=== PATIENT | male | born 1950 | race Caucasian/White ===

== ENCOUNTER → 2017-05-16 | Day surgery (SDC) | payer OTHER, BC ==
[2017-05-10 07:51] VITALS: Ht 180.3 cm; Wt 90.0 kg
[~2017-05-16] VITALS: Ht 180.3 cm; Wt 90.0 kg
[~2017-05-16] MED LIST: ATOR-24 PO; CARV6.252 PO; CLOP1TAB5 PO; GLIM4TAB2 PO; LIDOCAINE HCL 2% 2 ML VIAL (20MG/ML) ONE; LSN/2025 PO; MELO15TA10 PO; METF1000 PO; PROPOFOL IV EMULSION 10 MG/ML 20 ML VIAL IV ONE; SODIUM CHLORIDE 0.9% 500ML 500 ML IV ONE
--- NOTE | 2017-05-16 10:19 | Endo History and Physical ---
History & Physical Date of Service: May 16, 2017. Chief Complaint: History of colon cancer Referring Physician: Dr. Geovani Agrawal History of Present Illness h/o CRC Past Surgical History Hx Cardiac Surgery: No Hx Internal Defibrillator: No Hx Pacemaker: No Hx Abdominal Surgery: Yes (INCISIONAL HERNIA) Hx of Implantable Prosthesis: No Hx Post-Op Nausea and Vomiting: No Hx Cancer Surgery: Yes (COLON POLYPS REMOVED) Hx Thoracic Surgery: No Hx Orthopedic: Yes (LUMBAR DISCECTOMY) Hx Urinary Tract Surgery: No Family History None Social History Smoking Status: Never Smoker Hx Substance Use: No Hx Alcohol Use: No Allergies Coded Allergies: No Known Allergies (Verified , 05/10/17) Current Medications Reported Home Medications Medications Dose Route/Sig Max Daily Dose Days Date Category Glucophage (Metformin Hcl) 1,000 Mg Tab 1,000 Mg PO BID 05/10/17 Reported Lipitor (Atorvastatin Calcium) 40 Mg Tab 40 Mg PO QPM 05/10/17 Reported Plavix (Clopidogrel Bisulfate) 75 Mg Tab 75 Mg PO QAM 05/10/17 Reported Coreg (Carvedilol) 6.25 Mg Tab 6.25 Mg PO BID 05/10/17 Reported Lisinopril/Hctz 20/25 Mg (HCTZ/Lisinopril) 1 Ea Tab 1 Tab PO QAM 05/10/17 Reported Glimepiride 4 Mg Tab 1 Tab PO QAM 05/10/17 Reported Mobic (Meloxicam) 15 Mg Tab 15 Mg PO QAM 05/10/17 Reported Vital Signs Weight (Kilograms): 90 Height (Feet): 5 Height (Inches): 11 Date Time Temp Pulse Resp B/P (MAP) Pulse Ox O2 Delivery O2 Flow Rate FiO2 05/16/17 10:07 37 69 16 140/85 (103) 98 Room Air Physical Exam General Appearance: no apparent distress Respiratory/Chest: Auscultation: breath sounds normal Cardiovascular: Heart Auscultation: RRR Abdomen: Inspection & Palpation: soft Assessment and Plan H/o CRC - cscopy
--- NOTE | 2017-05-16 10:50 | GI REPORT ---
Procedure Date: 05/16/2017 9:52 AM Procedure: Colonoscopy Indications: High risk colon cancer surveillance: Personal history of colon cancer Medicines: See the Anesthesia note for documentation of the administered medications Complications: No immediate complications. Estimated Blood Loss: Estimated blood loss: none. Procedure: Pre-Anesthesia Assessment: - ASA Grade Assessment: III - A patient with severe systemic disease. After I obtained informed consent, the scope was passed under direct vision. Throughout the procedure, the patient's blood pressure, pulse, and oxygen saturations were monitored continuously. The scope was introduced through the anus and advanced to the terminal ileum. The colonoscopy was performed without difficulty. The patient tolerated the procedure well. The quality of the bowel preparation was good. Findings: The perianal and digital rectal examinations were normal. Unremarkable end to side anastamosis at 18 cm. The colon was otherwise normal. Impression: Unremarkable post surgical anatomy. Recommendation: - Repeat exam in 5 years. - Discharge patient to home. Anthony Pak MD 05/16/2017 10:50:15 AM This report has been signed electronically. Note Initiated On: 05/16/2017 9:52 AM I attest to the content of the Intraoperative Record and orders documented therein, exceptions below
--- NOTE | 2017-05-16 10:51 | Discharge Instructions ---
Endoscopy Patient Instructions Date / Procedure(s) Performed May 16, 2017. Colonoscopy Allergy Information Coded Allergies: No Known Allergies (Verified , 05/10/17) Discharge Date / Findings May 16, 2017. Unremarkable post surgical exam Medication Instructions Stopped Medication(s): Plavix, metformin and lisinopril with hctz was stopped. Resume all stopped medications today. Provider Instructions Activity Restrictions - No exercising or heavy lifting for 24 hours. - Do not drink alcohol the day of the procedure. - Do not drive a car or operate machinery until the day after the procedure. - Do not make any important decisions or sign important papers in 24 hours after the procedure. Following Day: - Return to full activity which may include returning to work/school. Diet Start your diet with liquids and light foods (jello, soup, juice, toast). Then eat your usual diet if not nauseated. Treatment For Common After Affects For mild abdominal pain, bloating, or excessive gas: - Rest - Eat lightly - Lie on right side Follow-Up Information Follow-up with Dr. Geovani Agrawal as scheduled Anesthesia Information What You Should Know You have had a procedure that required some medicine to reduce anxiety and discomfort. This treatment is called moderate sedation. After receiving the treatment, you may be sleepy, but you will be able to breathe on your own. The effects of the treatment may last for several hours. Follow these instructions along with Activity/Diet recommendations noted above: * Do NOT do anything where dizziness or clumsiness would be dangerous. * Rest quietly at home today, then you can be up and about tomorrow. * Have a responsible person stay with you the rest of today. * You may have had an I.V. today. If so, you may take the dressing off later today. Recommendations Call your doctor if: * Trouble breathing * Continuous vomiting for more than 24 hours * Temperature above 101 degrees * Severe abdominal pain or bloating * Pain not relieved by pain medicine ordered * There is increased drainage or redness from any incision * A large amount of rectal bleeding greater than 2-3 tablespoons. (If you had a polyp/s removed or have hemorrhoids, a small amount of blood - from the rectum is to be expected.) * You have any unanswered questions or concerns. IN THE EVENT OF A SERIOUS EMERGENCY, GO TO THE NEAREST EMERGENCY ROOM Your discharge instructions were prepared by provider Arden Travis. Patient Instructions Signature Page Floydcharles Isreal Patient (or Guardian) Signature/Date: I have read and understand the instructions given to me by my caregivers. Caregiver/RN/Doctor Signature/Date: The above-named patient and/or guardian has received patient instructions on this date. + Original Patient Signature Page (only) stays with chart. Please make copy for patient.
--- NOTE | 2017-05-16 11:13 | Anesthesiology Progress Note ---
Anesthesia Post Op Note Date & Time May 16, 2017 at 11:13 Vital Signs Pain Intensity: 0 Vital Signs Past 12 Hours Date Time Temp Pulse Resp B/P (MAP) Pulse Ox O2 Delivery O2 Flow Rate FiO2 05/16/17 11:06 81 16 144/87 (106) 98 Room Air 05/16/17 10:51 72 16 105/69 (81) 97 Room Air 05/16/17 10:07 37 69 16 140/85 (103) 98 Room Air Notes Mental Status: alert / awake / arousable, participated in evaluation Pt Amnestic to Procedure: Yes Nausea / Vomiting: adequately controlled Pain: adequately controlled Airway Patency, RR, SpO2: stable & adequate BP & HR: stable & adequate Hydration State: stable & adequate Anesthetic Complications: no major complications apparent
[2017-05-16 11:21] VITALS: BP 141/88; PULSE 75; O2SAT 97
== END | disposition home or self-care (01) ==
LOC: C.GI 09:34
PROVIDERS: ATTEND Internal Medicine Gastroenterology
DX: Z12.11 Encounter for screening for malignant neoplasm of colon (principal); Z85.038 Personal history of other malignant neoplasm of large intestine; I10 Essential (primary) hypertension; E78.5 Hyperlipidemia, unspecified; E11.9 Type 2 diabetes mellitus without complications; M19.90 Unspecified osteoarthritis, unspecified site; Z86.73 Personal history of transient ischemic attack (TIA), and cerebral infarction without residual deficits; Z79.02 Long term (current) use of antithrombotics/antiplatelets; Z79.899 Other long term (current) drug therapy; Z79.84 Long term (current) use of oral hypoglycemic drugs

== ENCOUNTER 2018-04-27 08:06 | Inpatient (IN) ==
--- NOTE | 2018-04-21 10:03 | PAT Medication Instructions ---
Medication Instructions Date of Service April 21, 2018 Home Medications Acetaminophen 1 dose PO NEEDED ascorbic acid (vitamin C) 500 mg PO DAILY atorvastatin 40 mg PO HS carvedilol 6.25 mg PO BID clopidogrel 75 mg PO DAILY glimepiride 2 tab PO QAM lisinopril-hydrochlorothiazide 1 tab PO QAM metformin 1,000 mg PO BID xanxwqkh-wxs-FP-lycopen-lutein [Centrum Silver] 1 tab PO DAILY vitamin Y93-tgghw acid 1 dose DAILY ASK your prescriber and surgeon clopidogrel 75 mg PO DAILY (Stop 04/20/18) DO NOT take the morning of surgery ascorbic acid (vitamin C) 500 mg PO DAILY glimepiride 2 tab PO QAM lisinopril-hydrochlorothiazide 1 tab PO QAM metformin 1,000 mg PO BID urpcuvko-oxm-FJ-lycopen-lutein [Centrum Silver] 1 tab PO DAILY vitamin L52-bloxp acid 1 dose DAILY Take morning of surgery With a small sip of water, OTHERWISE NOTHING TO EAT OR DRINK AFTER MIDNIGHT: Acetaminophen 1 dose PO NEEDED carvedilol 6.25 mg PO BID Take evening before surgery Acetaminophen 1 dose PO NEEDED atorvastatin 40 mg PO HS carvedilol 6.25 mg PO BID metformin 1,000 mg PO BID Other Notes If you have any questions please call us at [phone] or [phone] or [phone] or [phone]
--- NOTE | 2018-04-21 14:50 | Anesthesiology Consultation ---
Date of Service April 21, 2018 Assessment & Plan Chart Review Chart Review: Patient seen in Pre Admission Testing Consults Requested medical Patient with HgbA1c > 10 is at high risk for complications in the perioperative period. Please have patient see public events facilities rental manager or PCP to improve his glycemic control. Teaching & Discussion Pre-Anesthesia Teaching/Discussion Notes: Instructed NPO after midnight before surgery, except medications with 15 cc of water. Medication instructions provided according to the PAT guidelines. History Surgery Operation Date: 04/27/18 07:45 Proposed Procedures p L3-L4 Decompression and Fusion - Kerwin Conde DO Height/Weight Height: 5 ft 10 in Weight: 88.9 kg Allergies Allergy/AdvReac Type Severity Reaction Status Date / Time No Known Allergies Allergy Verified 04/20/18 13:18 Medications Home Medications Medication Instructions Recorded Confirmed Last Taken Acetaminophen 1 dose PO UD PRN 04/20/18 04/20/18 Unknown ascorbic acid (vitamin C) [Vitamin 500 mg PO DAILY 04/20/18 04/20/18 Unknown C] atorvastatin 40 mg PO HS 04/20/18 04/20/18 Unknown carvedilol 6.25 mg PO BID 04/20/18 04/20/18 Unknown clopidogrel 75 mg PO DAILY 04/20/18 04/20/18 Unknown glimepiride 2 tab PO QAM 04/20/18 04/20/18 Unknown lisinopril-hydrochlorothiazide 1 tab PO QAM 04/20/18 04/20/18 Unknown metformin 1,000 mg PO BID 04/20/18 04/20/18 Unknown rutgbkhz-jna-CJ-lycopen-lutein 1 tab PO DAILY 04/20/18 04/20/18 Unknown [Centrum Silver] vitamin D20-lugpu acid 1 dose DAILY 04/20/18 04/20/18 Unknown Past Medical History Medical History CKD (chronic kidney disease) stage 2, GFR 60-89 ml/min Degenerative disc disease Diabetes History of colon cancer History of stroke "SMALL"3-4 YRS AGO/SERVANDO/MEDS/LEFT SIDE EXTREMITIES NOT STRONG SINCE/ EFREN Hypertension Spinal stenosis Past Family History Family History Father Family history of lung cancer Past Surgical History Surgical History History of ankle surgery LEFT ANKLE - ORIF History of back surgery NO HARDWARE History of carpal tunnel surgery of left wrist History of colon resection History of colonoscopy History of hernia surgery Incisional hernia Past Anesthesia History No Hx of Anesthesia Complications and No Family Hx of Anesthesia Complications History of PONV No Motion Sickness Screening History of Motion Sickness: No Social History Smoking Status: Never smoker Do You Dip or Chew Tobacco: No Hx Alcohol Use: No Hx Substance Use: No substance use type: does not use Exercise / Class Metabolic Activity III < 4 Walking/Shop/Light housework (Limited for the past year due to back pain. Able to slowly climb FOS. Denies CP or SOB. ) Review of Systems Patient denies chest pain, shortness of breath, dyspnea on exertion, reflux, cough, wheezing, palpitations. +joint pain (back, knees, hip) Physical Exam Vital Signs BP: 119/53 P: 52 R: 16 T: 98.0 SPO2: 95% on RA ENMT Mouth: + poor dentition Thyromental Distance: > or= 3.5 Finger Breadths (3.5) Mallampati Class: I Neck normal visual inspection and trachea midline; neck extension not limited Respiratory normal respiratory effort Auscultation: lungs clear to auscultation bilaterally Cardiovascular Rate/Rhythm: + abnormal rate and + abnormal rhythm Heart Sounds: no murmur Vessels: no carotid bruit Irregularly, irregular rate/rhythm (a. fib) Psychiatric Orientation: alert and oriented x 3 Testing Electrocardiogram Date: 04/21/18 Findings: + NSR @ (84) and + no change from (ECG of 04/17/12) Frequent PVC's. Chest X-Ray Date: 04/21/18 Findings: + NAD FINDINGS: Cardiomediastinal and hilar silhouettes are within normal limits. Mild right hemidiaphragmatic elevation. No pneumothorax, pleural effusion, lobar airspace consolidation or overt pulmonary edema. Mild right hemidiaphragmatic elevation. Degenerative changes of the shoulders and spine. IMPRESSION: No acute process. Echocardiogram Date: 01/30/15 EF: 60% Trace mitral valve regurgitation. Mild mitral valve annular calcification. Left ventricle is normal is size, wall motion, and contractility. Stress Test Date: 02/17/15 Type: exercise Negative for angina pectoris or ECG evidence for ischemia. PVCs are noted at rest and during recovery, but are less apparent during exercise. There is no sustained ventricular tachycardia. Patient had dyspnea and leg fatigue. Hemodynamic response to stress was fair. Exercise capacity was good. There is no ECT criteria for myocardia ischemia. Peak HR achieved was 136 bpm, which was 88% of MPHR. Exercised for 4 minutes and 51 seconds on Erick protocal, achieving an estimated workload of 7.0 METS. Laboratory Results 04/21/18 14:25 04/21/18 14:25 Blood Type A Positive 04/21/18 14:25 Antibody Screen NEGATIVE 04/21/18 14:25 PT 10.3 Seconds (9.0-12.0) 04/21/18 14:25 INR 1.0 (0.9-1.1) 04/21/18 14:25 APTT 23.4 Seconds (21.0-31.0) 04/21/18 14:25 Hemoglobin A1c 10.8 % (4.5-5.6) H 04/21/18 14:25 Urine Color Yellow 04/21/18 14:25 Urine Appearance Clear (Clear) 04/21/18 14:25 Urine pH 5.0 (4.5-7.5) 04/21/18 14:25 Ur Specific [place] 1.033 (1.000-1.030) H 04/21/18 14:25 Urine Protein Negative (Negative) 04/21/18 14:25 Urine Glucose (UA) 3+ (Negative) H 04/21/18 14:25 Urine Ketones Trace (Negative) H 04/21/18 14:25 Urine Nitrite Negative (Negative) 04/21/18 14:25 Ur Leukocyte Esterase Negative (Negative) 04/21/18 14:25 Dr. Conde's office made aware of elevated BSG (321) and A1C (10.8).
--- NOTE | 2018-04-21 15:43 | XRay Report ---
XR chest Pre-admission PA/Lat HISTORY: 67 years-old Male pat preoperative exam. No acute chest complaints. COMPARISON: None available TECHNIQUE: PA and lateral views of the chest FINDINGS: Cardiomediastinal and hilar silhouettes are within normal limits. Mild right hemidiaphragmatic elevat ion. No pneumothorax, pleural effusion, lobar airspace consolidation or overt pulmonary edema. Mild r ight hemidiaphragmatic elevation. Degenerative changes of the shoulders and spine. IMPRESSION: No acute process. The above report was generated using voice recognition software. It may contain grammatical, syntax o r spelling errors. Electronically signed by: Eric Morse M.D. 04/21/2018 3:42 PM
[2018-04-21 15:51] LABS: Basophils # (auto) 0.04 K/uL (0-0.2); Basophils % (auto) 0.6 %; Eosinophils # (auto) 0.27 K/uL (0-0.5); Hematocrit (blood only) 38.9 % (42-52); Hemoglobin 13.6 g/dL (14.0-18.0); Immature Granulocytes # (auto) 0.01 K/uL (0.00-0.02); Immature Granulocytes % (auto) 0.1 %; Lymphocytes # (auto) 2.41 K/uL (1.2-3.4); Lymphocytes % (auto) 36.1 %; Mean Corpuscular Volume 85.7 fL (80-100); Neutrophils # (auto) 3.35 K/uL (1.4-6.5); Neutrophils % (auto) 50.2 %; Platelet Count 233 K/uL (130-400); RDW Coefficient of Variation 12.7 % (11.5-14.5); RDW Standard Deviation 39.7 fL (36.4-46.3); Red Blood Count 4.54 M/uL (4.7-6.1); White Blood Count 6.68 K/uL (4.8-10.8)
[2018-04-21 15:54] LABS: Appearance Urine Clear (Clear); Bilirubin Urine Negative (Negative); Color Urine Yellow; Glucose Urine UA 3+ (Negative); Ketones Urine Trace (Negative); Leukocyte Esterase Urine Negative (Negative); Nitrite Urine Negative (Negative); Protein Urine Negative (Negative); Specific Gravity Urine 1.033 (1.000-1.030); Urobilinogen Urine Negative (Negative)
[2018-04-21 16:03] LABS: Est GFR (African American) 61.6; Est GFR (Non-African American) 53.2; Potassium 3.8 mmol/L (3.5-5.1)
[2018-04-21 16:04] LABS: BUN Creatinine Ratio 19.3 (10-20); Calcium 9.7 mg/dl (8.5-10.1)
[2018-04-21 16:11] LABS: Partial Thromboplastin Ratio 0.9; Partial Thromboplastin Time 23.4 Seconds (21.0-31.0); Prothrombin Time 10.3 Seconds (9.0-12.0)
[2018-04-22 06:19] LABS: Estimated Average Glucose 263 mg/dl
[~2018-04-27 08:06] MED LIST changes: +ACETAMINOPHEN 500 MG TAB PO SCH; -ATOR-24 PO; -CARV6.252 PO; +CEFAZOLIN 2000MG 2,000 MG/15 ML SYR IV SCH; -CLOP1TAB5 PO; +CeleBREX 200 MG CAP PO SCH; +GABAPENTIN 300 MG PO SCH; -GLIM4TAB2 PO; -LIDOCAINE HCL 2% 2 ML VIAL (20MG/ML) ONE; +LR 15ML/HR IV SCH; -LSN/2025 PO; -MELO15TA10 PO; -METF1000 PO; -PROPOFOL IV EMULSION 10 MG/ML 20 ML VIAL IV ONE; -SODIUM CHLORIDE 0.9% 500ML 500 ML IV ONE
[2018-04-27] MEDS ORDERED: MIDAZOLAM HCL 1 MG/ML 2ML VIAL ONE (08:32)
[2018-04-27] MEDS ORDERED: HYDROmorphone INJ 2 MG/ML SYR/VIAL ONE ×3 (08:32→12:17)
[2018-04-27] MEDS ORDERED: fentaNYL citrate 100 MCG/2 ML VIAL ONE ×5 (08:32→12:36)
[2018-04-27] MEDS ORDERED: PROMETHAZINE HCL 12.5 MG in SODIUM CHLORIDE 0.9% 50 ML IV PRN ×2 (09:30→13:54)
[2018-04-27] MEDS ORDERED: HYDROmorphone INJ 1 MG/ML SYRINGE IV PRN (09:30)
[2018-04-27] MEDS ORDERED: ATROPINE SULFATE 0.1 MG/ML 5ML SYR IV PRN (09:30)
[2018-04-27] MEDS ORDERED: ePHEDrine sulfate 50 MG/ML AMP IV PRN (09:30)
[2018-04-27] MEDS ORDERED: ONDANSETRON INJ 2 MG/ML 2 ML VIAL IV PRN ×2 (09:30→13:54)
[2018-04-27] MEDS ORDERED: PHENYLEPHRINE 100MCG/ML 5ML SYR IV PRN (09:30)
[2018-04-27] MEDS ORDERED: INSULIN HUMAN REGULAR PER UNIT 6 UNITS in SYRINGE 0 ML IV STA (09:31)
[2018-04-27] MEDS ORDERED: NovoLIN-R INSULIN PER UNIT CHARGE ONE (09:36)
--- NOTE | 2018-04-27 10:13 | History & Physical Bridge Note ---
Date of Service April 27, 2018 History & Physical Bridge Note I have examined the patient, reviewed the History & Physical and in the interval since the performance of the History & Physical I have noted the following changes of clinical significance: no changes noted
--- NOTE | 2018-04-27 10:14 | History & Physical Report ---
Date of Service April 27, 2018 Assessment & Plan (1) Neurogenic claudication due to lumbar spinal stenosis: Lumbar decompression and fusion L2-3 Present on Admission?: Yes History of Present Illness Chief Complaint: Back and leg pain Primary Care Provider: Geovani Agrawal MD This is a 67-year-old male who presents with significant back and left leg pain. He contributes to significant quad deficit and weakness. It has been progressive in nature with significant decline over the past several days. Subsequently moving forward with an urgent decompression and fusion. Allergies Allergy/AdvReac Type Severity Reaction Status Date / Time No Known Allergies Allergy Verified 04/27/18 08:30 Home Medications Home Medications Medication Instructions Recorded Confirmed Type acetaminophen [Acetaminophen Extra 500 mg PO QID PRN 04/20/18 04/27/18 History Strength] ascorbic acid (vitamin C) [Vitamin 500 mg PO DAILY 04/20/18 04/27/18 History C] atorvastatin 40 mg PO HS 04/20/18 04/27/18 History carvedilol 6.25 mg PO BID 04/20/18 04/27/18 History clopidogrel 75 mg PO DAILY 04/20/18 04/27/18 History glimepiride 8 mg PO QAM 04/20/18 04/27/18 History lisinopril-hydrochlorothiazide 1 tab PO QAM 04/20/18 04/27/18 History metformin 1,000 mg PO BID 04/20/18 04/27/18 History udlcrlzy-tub-IY-lycopen-lutein 1 tab PO DAILY 04/20/18 04/27/18 History [Centrum Silver] vitamin Z90-asfha acid 1 dose DAILY 04/20/18 04/27/18 History Past Med/Surg History Family History Father Family history of lung cancer Social History Current Living Situation: Spouse Other Information That Helps Us Care for You: No Feels Safe at Home: Yes Smoking Status: Never smoker Do You Dip or Chew Tobacco: No Hx Alcohol Use: No Hx Substance Use: No Beliefs That Will Affect Care: None Preferred Language: Lithuanian Communication Ability: Effective Consumer Credit Counselor Required: No Physical Exam 2 Vital Signs (Past 24 Hours): Last Vital Signs Temp 36.5 C 04/27/18 08:34 Pulse 59 L 04/27/18 08:34 Resp 20 04/27/18 08:34 BP 124/59 L 04/27/18 08:34 Pulse Ox 97 04/27/18 08:34 Results & Data Medications Administered Acetaminophen (Tylenol) 1,000 mg PO PREOP SERVANDO Stop: 04/27/18 18:00 Last Admin: 04/27/18 09:21 Dose: 1,000 mg Celecoxib (Celebrex) 200 mg PO PREOP SERVANDO Stop: 04/27/18 18:00 Last Admin: 04/27/18 09:22 Dose: 200 mg Gabapentin (Neurontin) 300 mg PO PREOP SERVANDO Stop: 04/27/18 18:00 Last Admin: 04/27/18 09:22 Dose: 300 mg Lactated Ringer's (Lr) 1,000 mls @ 15 mls/hr IV .Q24H SERVANDO Stop: 04/28/18 05:59 Last Admin: 04/27/18 09:07 Dose: 15 mls/hr
[2018-04-27] MEDS ORDERED: BUPIVACAINE/EPINEPHRINE 0.5% MPF 1:200,000 30 ML VIAL ONE (10:26)
[2018-04-27] MEDS ORDERED: BACITRACIN INJ 50,000 UNIT VIAL ONE (10:26)
[2018-04-27] MEDS ORDERED: ONDANSETRON INJ 2 MG/ML 2 ML VIAL ONE (11:38)
[2018-04-27] MEDS ORDERED: ePHEDrine sulfate 50 MG/ML SYR ONE (11:38)
[2018-04-27] MEDS ORDERED: DEXAMETHASONE SOD INJ 4 MG/ML VIAL ONE (11:38)
[2018-04-27] MEDS ORDERED: ROCURONIUM BROMIDE 10 MG/ML 5 ML VIAL ONE (11:38)
[2018-04-27] MEDS ORDERED: LIDOCAINE HCL 2% 2 ML VIAL/AMP(20MG/ML) INFIL ONE (11:38)
[2018-04-27] MEDS ORDERED: NEOSTIGMINE METHYLSULFATE 1 MG/ML 10ML VIAL ONE (11:38)
[2018-04-27] MEDS ORDERED: GLYCOPYRROLATE 0.2 MG/ML VIAL ONE (11:38)
[2018-04-27] MEDS ORDERED: PHENYLEPHRINE 100MCG/ML 5ML SYR ONE (11:38)
[2018-04-27] MEDS ORDERED: PROPOFOL IV EMULSION 10 MG/ML 20 ML VIAL IV ONE (11:38)
[2018-04-27] MEDS ORDERED: LARYING-O-JET KIT (LTA) ONE (11:54)
[2018-04-27] MEDS ORDERED: FLOSEAL HEMOSTATIC MATRIX 10ML TOP ONE (12:05)
--- NOTE | 2018-04-27 12:41 | Operative Report ---
Post Operative Report Date of Surgery April 27, 2018 Pre & Post Diagnosis Operation Date: 04/27/18 10:05 Pre-Op Diagnosis: Intervertebral Disc Disorders with Radiculopathy Post-Op Diagnosis: Intervertebral Disc Disorders with Radiculopathy Procedure Operation Date: 04/27/18 10:05 Actual Procedures #1 lumbar decompression medial vasectomies foraminotomies L2-3. #2 posterior spinal fusion L2-3 per #3 placed posterior instrumentation L2-3. #4 interbody fusion L2-3. #5 placement of titanium 9 x 26 mm cage at L2-3. #6 treatment of local autograft in the posterior lateral gutters. #7 placement infuse collagen sponge, mass graft in the posterior gutters and ostial amp in the interbody space. Surgeon Kerwin Conde DO Principal Developer None Estimated Blood Loss 175 Findings Consistent with Post-Op Diagnosis Specimens None Description of Procedure Patient was met with preoperatively case discussed all questions addressed. After informed consent obtained patient was taken to the operative suite underwent intubation and placed in a prone position the Rosalio table on top of the Frandy frame. All bony prominences well-padded eyes inspected to ensure no external pressure placed upon him. This point the lumbar spine was prepped and draped in a normal sterile fashion. Sharp dissection with the assistance of Bovie cautery was performed down to and exposing the lamina and transverse processes of L2 and L3 bilaterally. From a caudal cephalad fashion complete laminectomy of L2 was performed including medial facetectomies foraminotomies. Also address the massive disc herniation L2 through the migrated caudally along the pedicle of L3 on the left. This is completely removed. Pedicle screws were then placed in L2 and L3 bilaterally with assistance of fluoroscopy and process cecily placed. The transforaminal approach and left complete discectomy was performed in place coated to subcortical mean bone and a 9 x 26 mm titanium cage filled with ostium bone graft tapped in position. Rods were then compressed locked in final position bilaterally. The transverse processes of L to L3 burred to subcortical B bone. Infuse collagen sponge mass graft local autograft placed in the posterior gutters. 15 round GENNY drain inserted. Incision was then closed with 1 Vicryl fascia 2-0 Vicryl subtenons in 4 Monocryl for Fransen closure Steri-Strip sterile dressings placed. Patient will continue to PACU stable disc. I attest to the content of the Intraoperative Record and any orders documented therein. Any exceptions are noted below.
[2018-04-27] MEDS: fentaNYL citrate 100 MCG/2 ML VIAL IV PRN ×2 (12:59→13:04)
--- NOTE | 2018-04-27 13:05 | Fluoroscopy Report ---
FL lumbar spine 2-3V CLINICAL HISTORY: L3-L4 Decompression and fusion COMPARISON STUDY: None FLUOROSCOPY TIME: 22 seconds. NUMBER OF FLUOROSCOPIC IMAGES: 2 FINDINGS: Accurate numbering is not possible due to the limited field of view. There are postsurgical changes of a discectomy and interbody fusion with posterior pedicle screw fixation. IMPRESSION: Intraoperative radiographs as described above. Electronically signed by: Fabio Rosas M.D. 04/27/2018 1:04 PM
--- NOTE | 2018-04-27 13:27 | Anesthesiology Progress Note ---
Date of Service April 27, 2018 Anesthesia Post Procedure Vital Signs Vital Signs: Temp Pulse Pulse Resp BP Pulse Ox 04/27/18 13:20 79 16 136/83 98 04/27/18 13:10 76 16 115/81 97 04/27/18 13:00 79 16 140/74 98 04/27/18 12:52 36.5 C 67 14 150/88 H 98 04/27/18 08:34 36.5 C 59 L 20 124/59 L 97 Pain Intensity Left Leg: Pain Intensity: 7 Notes Mental Status: alert / awake / arousable Patient Amnestic to Procedure: Yes Nausea / Vomiting: adequately controlled Pain: adequately controlled Airway Patency, RR, SpO2: stable & adequate BP & HR: stable & adequate Hydration State: stable & adequate Anesthetic Complications: no major complications apparent Notes: Pt doing well. No complaints. PVCs noted per baseline. Pt asymptomatic from it. B in PACU. Surgeon consulted hospitalist team for post op DM management. VSS.
[2018-04-27] MEDS ORDERED: SOD PHOSPHATE/SOD BIPHOSPHATE ENEMA 132 ML BTL PR PRN (13:54)
[2018-04-27] MEDS ORDERED: BISACODYL 10 MG SUPP PR PRN (13:54)
[2018-04-27] MEDS ORDERED: ONDANSETRON 4 MG TAB PO PRN (13:54)
[2018-04-27] MEDS ORDERED: DO NOT ADMINISTER PNEUMOCOCCAL VACCINE PRN (13:54)
[2018-04-27] MEDS ORDERED: DO NOT ADMINISTER FLU VACCINE PRN (13:54)
[2018-04-27] MEDS ORDERED: LORazepam 0.5 MG TAB PO PRN (13:54)
[2018-04-27] MEDS ORDERED: ALUMINUM/MAGNESIUM SUSP 30 ML UDC PO PRN (13:54)
[2018-04-27] MEDS ORDERED: MAGNESIUM HYDROXIDE SUSP 30 ML UDC PO PRN (13:54)
[2018-04-27] MEDS ORDERED: ACETAMINOPHEN 500 MG TAB PO PRN ×2 (13:54)
[2018-04-27] MEDS ORDERED: ACETAMINOPHEN 1,000 MG/100 ML VIAL IV PRN (13:54)
[2018-04-27] MEDS ORDERED: LORazepam 0.5 MG/1 ML VIAL IV PRN (13:54)
[2018-04-27] MEDS ORDERED: HYDROmorphone INJ 0.5 MG/0.5 ML SYR IV PRN (13:54)
[2018-04-27] MEDS ORDERED: FAMOTIDINE 20 MG TAB PO PRN (13:54)
[2018-04-27] MEDS ORDERED: METOCLOPRAMIDE HCL INJ 5 MG/ML 2 ML VIAL IV PRN (13:54)
[2018-04-27] MEDS: SODIUM CHLORIDE 0.9% 1000ML 1,000 ML IV SCH ×2 (14:22→21:25)
[2018-04-27] MEDS ORDERED: GLUCOSE 10 TABS/TUBE PO PRN (14:37)
[2018-04-27] MEDS ORDERED: GLUCOSE 40% GEL 15 GM TUBE PO PRN (14:37)
[2018-04-27] MEDS ORDERED: GLUCAGON FOR INJ 1 MG VIAL SQ PRN (14:37)
[2018-04-27] MEDS ORDERED: DEXTROSE 50% 50 ML SYRINGE IV PRN (14:37)
[2018-04-27] MEDS ORDERED: CARBOHYDRATES FOR HYPOGLYCEMIA PO PRN (14:37)
[2018-04-27] MEDS ORDERED: INSULIN GLARGINE SOLOSTAR 100 UNITS/ML 3 ML PEN SC STA ×2 (14:49→15:31)
--- NOTE | 2018-04-27 15:04 | Consultation ---
Addendum entered and electronically signed by Arabella Dobbs PA-C 15:26: Addendum (Blank) Addendum April 27, 2018 15:25 Note* Plavix currently on hold given procedure Will await clearance to resume plavix per surgeon Original Note: Date of Consultation April 27, 2018 Assessment & Plan (1) Neurogenic claudication due to lumbar spinal stenosis: POD #0 s/p Lumbar Decompression and Fusion L2-L3 by Dr. Conde EBL 175ml Tolerated procedure well -pain/wound management per ortho -PT/OT as directed -VTE prophylaxis per attending, SCDS/Teds -incentive spirometry -monitor H/H for abl anemia (2) S/P lumbar spinal fusion: -plan as above (3) Frequent PVCs: -irregular HB noted on auscultation, check ecg -patient with hx of PVC on coreg (4) Diabetes: -pre-operative A1C 10.8 -has been relatively uncontrolled for ~ 10 years -on metformin and glimepiride, hold oral agents -per previous notes in epic from PCP there is recommendation to add insulin to regimen post operatively -will consult life skills educator as well as glycemic pharmacist for appropriate management (5) Hypertension: -blood pressure controlled, goal <130/80 -continue coreg, hold lisinopril/HCTZ until BMP returns in a.m, if okay resume (6) CKD (chronic kidney disease) stage 3, GFR 30-59 ml/min: -baseline cr 1.3 -monitor bmp (7) History of stroke: -continue statin, plavix -recommend tighter blood sugar control to reduce cardiovascular risk/events (8) DVT prophylaxis: -Teds, SCDS, ambulation per attending Disposition: Per attending Follow up: PCP Dr. Bundy upon discharge, will need close follow up for strict diabetes control to ensure proper wound healing Thank you for this consultation. We will follow the patient with you during their hospital stay. You can reach a member of the [facility] Hospitalist Team 22/11 via pager @ . Patient seen in collaboration with Dr. Card, Please see addendum Supervising Physician Co-Signing Physician Notes Attending addendum Patient was seen and examined the medical floor He is status post back surgery He has diabetes and seems to be out of control He denies any significant symptoms except pain at the back On examination No apparent distress at rest Hemodynamically stable Chest-clear to auscultate bilaterally Heart-S1-S2 regular, no murmur appreciated Abdomen-benign Extremities- Labs and imaging studies noted Has uncontrolled diabetes Diabetic teaching and initiation of insulin Agree with assessment and plan as outlined above by Arabella Card History of Present Illness Reason for Consultation: Post operative medical management Requesting Physician: Dr. Conde Attending Physician: Kerwin Conde, History of Present Illness This is a 67 year old male, patient of Dr. Bundy, with significant PMH of poorly controlled T2DM, hx of TIA/CVA w/o deficit, HTN, HLD, CKD3, hx of adenoca of colon s/p sigmoidectomy who presents to [facility] 04/27/18 for elective Lumbar decompression/fusion by Dr. Conde. Patient has failed outpatient conservative management. He has been suffering from chronic low back pain with radicular left lower extremity pain. Post operatively he is doing well w/o complaints. He denies f/c/s, dizziness, lightheaded, chest pain, sob, n/v/d, abdominal pain. He has some minimal incisional discomfort, but currently no other pain. Appetite is normal. is at bedside. Allergies Allergy/AdvReac Type Severity Reaction Status Date / Time No Known Allergies Allergy Verified 04/27/18 08:30 Home Medications Home Medications Medication Instructions Recorded Confirmed Type acetaminophen [Acetaminophen Extra 500 mg PO QID PRN 04/20/18 04/27/18 History Strength] ascorbic acid (vitamin C) [Vitamin 500 mg PO DAILY 04/20/18 04/27/18 History C] atorvastatin 40 mg PO HS 04/20/18 04/27/18 History carvedilol 6.25 mg PO BID 04/20/18 04/27/18 History clopidogrel 75 mg PO DAILY 04/20/18 04/27/18 History glimepiride 8 mg PO QAM 04/20/18 04/27/18 History lisinopril-hydrochlorothiazide 1 tab PO QAM 04/20/18 04/27/18 History metformin 1,000 mg PO BID 04/20/18 04/27/18 History glvqdmkw-bbs-HK-lycopen-lutein 1 tab PO DAILY 04/20/18 04/27/18 History [Centrum Silver] vitamin K84-anhup acid 1 dose DAILY 04/20/18 04/27/18 History gabapentin 400 mg PO TID 04/27/18 04/27/18 History Patient History Medical History Frequent PVCs CKD (chronic kidney disease) stage 3, GFR 30-59 ml/min Hypertension Diabetes History of stroke "SMALL"3-4 YRS AGO/SERVANDO/MEDS/LEFT SIDE EXTREMITIES NOT STRONG SINCE/ EFREN Spinal stenosis Degenerative disc disease History of colon cancer Surgical History History of colon resection History of back surgery NO [place]ARD[place] History of colonoscopy History of hernia surgery Incisional hernia History of carpal tunnel surgery of left wrist History of ankle surgery LEFT ANKLE - ORIF Family History Father Family history of lung cancer Mother Diabetes Son , in 30s Cardiac arrest Social History Current Living Situation: Spouse Other Information That Helps Us Care for You: No Feels Safe at Home: Yes Smoking Status: Never smoker Do You Dip or Chew Tobacco: No Hx Alcohol Use: No Hx Substance Use: No Beliefs That Will Affect Care: None Preferred Language: Welsh Communication Ability: Effective 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 Physical Exam 2 Vital Signs (Past 24 Hours): Last Vital Signs Temp 36.4 C L 04/27/18 14:11 Pulse 49 L 04/27/18 14:36 Resp 17 04/27/18 14:36 BP 136/74 04/27/18 14:36 Pulse Ox 93 04/27/18 14:36 Physical Exam: Gen: WD/WN, M, NAD, sitting up in bed, pleasant, conversing easily Head: Normocephalic, Atraumatic Eyes: Sclera normal, no conjunctival injection, PERRLA, EOMI ENT: Gross hearing intact, normal pharynx, mucous membranes moist Neck: supple, no adenopathy, No JVD, no bruit, no thyromegaly, Resp: Clear to auscultation b/l, no wheeze, rales, rhonchi. Normal insp/exp effort, no accessory muscle use CV: Regular rate, irregular rhythm ?PAC/PVC vs truly irregular, no murmur, rub, gallop, + ectopy throughout Abd: +BS x 4, soft, nontender, nondistended Musculoskeletal: moves extremities active rom x 4, strength intact, good supervisor cell efficiency strength Extremities: No edema bilaterally, b/l grant stockings in place Skin: warm, moist, no rash, negative turgor, cap refill < 2sec, lumbar dressing CDI Neuro: Alert and oriented x 3, speech normal, good mood/affect, cran nerve 2-12 intact grossly : deferred Results & Data Laboratory Results Pre operative lab work: Hgb13.6 A1C 10.8 Cr 1.3 Diagnostic Findings CXR: No acute abnormality ECG Rate (beats per minute): 84 Rhythm: normal sinus Findings: + PVC Additional Comments: QTC 477
[2018-04-27] MEDS ORDERED: PHARMACY GLYCEMIC MGMT CONSULT PRN (15:20)
[2018-04-27] MEDS: OXYCODONE HCL IR 5 MG TAB (IMMEDIATE RELEASE) PO PRN ×2 (16:43→23:04)
[2018-04-27] MEDS: CEFAZOLIN 2000MG 2,000 MG/15 ML SYR IV SCH (17:46)
[2018-04-27] MEDS: KETOROLAC TROMETHAMINE 15 MG/ML VIAL IV SCH (17:46)
[2018-04-27] MEDS: INSULIN ASPART 100 UNITS/ML 3 ML PEN SC SCH ×2 (18:03→21:42)
[2018-04-27] MEDS ORDERED: INSULIN GLARGINE SOLOSTAR 100 UNITS/ML 3 ML PEN SC SCH ×2 (21:00→22:00)
[2018-04-27] MEDS: CARVEDILOL 6.25 MG TAB PO SCH (21:29)
[2018-04-27] MEDS: GABAPENTIN 400 MG CAP PO SCH (21:31)
[2018-04-27] MEDS: ATORVASTATIN 40 MG TAB PO SCH (21:31)
[2018-04-27] MEDS: DOCUSATE SODIUM/SENNA 50/8.6MG TAB PO SCH (21:31)
[2018-04-28] MEDS ORDERED: INSULIN HUMAN REGULAR PER UNIT 3 UNITS in SYRINGE 0 ML IV SCH (01:00)
[2018-04-28] MEDS: INSULIN ASPART 100 UNITS/ML 3 ML PEN SC SCH ×6 (01:02→21:27)
[2018-04-28] MEDS: KETOROLAC TROMETHAMINE 15 MG/ML VIAL IV SCH ×3 (01:05→11:13)
[2018-04-28] MEDS: CEFAZOLIN 2000MG 2,000 MG/15 ML SYR IV SCH (01:17)
[2018-04-28] MEDS: POLYETHYLENE (MIRALAX) 17 GM PACK PO SCH ×4 (05:50→23:25)
--- NOTE | 2018-04-28 07:31 | Anesthesiology Progress Note ---
Date of Service April 28, 2018 Anesthesia Post Procedure (SC) Vital Signs Vital Signs: Temp Pulse Pulse Pulse Resp BP Pulse Ox 04/28/18 07:01 36.5 C 71 16 120/70 95 04/28/18 05:49 74 04/28/18 04:00 69 04/28/18 03:37 36.6 C 46 L 18 123/76 95 04/27/18 22:42 36.5 C 22 L 18 147/60 H 95 04/27/18 21:26 51 L 115/66 04/27/18 18:57 34.8 C L 108 H 18 159/68 H 95 04/27/18 17:03 36.4 C L 52 L 16 120/58 L 95 04/27/18 15:26 36.5 C 61 16 144/88 H 95 04/27/18 14:36 49 L 17 136/74 93 04/27/18 14:11 36.4 C L 71 18 159/96 H 94 04/27/18 13:56 36.5 C 67 13 102/66 94 04/27/18 13:20 79 16 136/83 98 04/27/18 13:10 76 16 115/81 97 04/27/18 13:00 79 16 140/74 98 04/27/18 12:52 36.5 C 67 14 150/88 H 98 04/27/18 08:34 36.5 C 59 L 20 124/59 L 97 Pain Intensity Left Leg: Pain Intensity: 7 Back: Pain Intensity: 5 Notes Mental Status: alert / awake / arousable Patient Amnestic to Procedure: Yes Nausea / Vomiting: adequately controlled Pain: adequately controlled Airway Patency, RR, SpO2: stable & adequate BP & HR: stable & adequate Hydration State: stable & adequate Anesthetic Complications: no major complications apparent and Pt Satisfied with anesthetic care
[2018-04-28 08:02] LABS: Basophils # (auto) 0.01 K/uL (0-0.2); Basophils % (auto) 0.1 %; Hematocrit (blood only) 30.8 % (42-52); Hemoglobin 10.9 g/dL (14.0-18.0); Immature Granulocytes # (auto) 0.02 K/uL (0.00-0.02); Immature Granulocytes % (auto) 0.2 %; Lymphocytes # (auto) 1.39 K/uL (1.2-3.4); Mean Corpuscular Hgb Conc 35.4 g/dL (32-36); Mean Corpuscular Volume 84.6 fL (80-100); Mean Platelet Volume 10.8 fL (7.4-10.4); Monocytes # (auto) 1.06 K/uL (0.11-0.59); Monocytes % (auto) 8.4 %; Neutrophils # (auto) 10.13 K/uL (1.4-6.5); Neutrophils % (auto) 80.3 %; Platelet Count 182 K/uL (130-400); RDW Coefficient of Variation 12.6 % (11.5-14.5); RDW Standard Deviation 38.9 fL (36.4-46.3); Red Blood Count 3.64 M/uL (4.7-6.1); White Blood Count 12.61 K/uL (4.8-10.8)
[2018-04-28 08:39] LABS: BUN Creatinine Ratio 21.6 (10-20); Calcium 8.7 mg/dl (8.5-10.1); Creatinine Clr Calc Pharmacy 57.1 ml/min; Est GFR (Non-African American) 57.8; Potassium 3.8 mmol/L (3.5-5.1)
[2018-04-28] MEDS: CARVEDILOL 6.25 MG TAB PO SCH ×2 (08:45→21:23)
[2018-04-28] MEDS: GABAPENTIN 400 MG CAP PO SCH ×3 (08:45→21:22)
[2018-04-28] MEDS: ASCORBIC ACID 500 MG TAB PO SCH (08:45)
[2018-04-28] MEDS: CEROVITE ADV FORMULA TAB PO SCH (08:45)
[2018-04-28] MEDS: INSULIN GLARGINE SOLOSTAR 100 UNITS/ML 3 ML PEN SC SCH ×2 (08:49→21:26)
--- NOTE | 2018-04-28 08:54 | Pharmacy Report ---
Glycemic Control Consultation - Date of Service April 28, 2018 - Scope Scope: Glycemic Pharmacist consulted by Arabella Dobbs on 04/28/18 for glycemic control and to write orders per [facility] inpatient glycemic control protocol - Objective Weight: 87.175 kg Accuchecks BSG (last 24hrs): 04/27/18 04/27/18 04/27/18 08:27 08:57 10:17 Glucose POC Glucose 322 H 300 H 265 H 04/27/18 04/27/18 04/27/18 13:13 16:59 17:01 Glucose POC Glucose 249 H 385 H* 367 H* 04/27/18 04/27/18 04/28/18 21:24 21:26 00:06 Glucose POC Glucose 368 H* 355 H* 295 H 04/28/18 04/28/18 04/28/18 03:37 07:48 07:54 Glucose 194 H POC Glucose 223 H 189 H Laboratory Data (last 24hrs): 04/28/18 07:48 Potassium 3.8 Carbon Dioxide 25 Anion Gap 9.0 Creatinine 1.26 Est Cr Clr Drug Dosing 57.1 HbA1c: Hemoglobin A1c 10.8 % (4.5-5.6) H 04/21/18 14:25 - Recent Pertinent Medications Outpatient Anti-diabetic Regimen: * Metformin and Glimepiride * A1c = 10.8 % 04/21/18 - Assessment & Plan Assessment & Plan: ASSESSMENT: * Mr. Bach is a 67yo M unbeknownst to the pharmacy glycemic service. His outpt glycemic management is poor as evidenced by his A1C of 10.8% 04/21/18. PMHx consistent with DM-II, HTN, PVCs, CKD, stroke. Given his age and comorbidities his A1C should be closer to ~7.5%. * He is POD 1 for a lumber decompression. He received 12mg of IV DXM dania- operatively. Which will certainly confer a significant amount of insulin resistance. * He received 85units of insulin yesterday, 04/27/18. BSGs [phone] /dL. Hyperglycemia likely steroid induced with underlying insulin resistance. I surmise his insulin requirements will start to dissipate in the next 24hrs. He is ordered a type 2 diabetes diet. * Will continue to follow PLAN FOR INPATIENT GLYCEMIC CONTROL: * Holding outpatient oral diabetes medications * Basal insulin * Lantus scale SQ BID * give 15 units for BSGs <200mg/dL * give 20 units for BSGs >/=200mg/dL * Bolus insulin * NovoLog per scale ACHS or Q6hrs while NPO * Goal Range: Low 110 mg/dL - High 140 mg/dL * Correction Factor: 20 mg/dL/unit * Nutritional / Prandial insulin per carb ratio of 1 unit per 6 grams CHO consumed * Will consider adding 00,04 checks dependent on how he trends throughout the day * Please note that the plan above was derived based on current level of insulin resistance and hospital stress. These recommendations are appropriate for inpatient admission only. Plan of care upon discharge will need to be reassessed to avoid potential outpatient hypo/hyperglycemia.
[2018-04-28] MEDS ORDERED: LISINOPRIL/HCTZ 20/25MG 1 TAB PO SCH (09:00)
[2018-04-28] MEDS ORDERED: GLIMEPIRIDE 2 MG TAB PO SCH (09:00)
--- NOTE | 2018-04-28 10:58 | Hospitalist Progress Note ---
Date of Service April 28, 2018 Assessment & Plan (1) Neurogenic claudication due to lumbar spinal stenosis: POD #1 s/p Lumbar Decompression and Fusion L2-L3 by Dr. Conde EBL 175ml, GENNY drain with 365 ml out Tolerated procedure well -pain/wound management per ortho -PT/OT as directed -VTE prophylaxis per attending, SCDS/Teds -incentive spirometry -monitor H/H for abl anemia - Hgb dropped to 10.9 today (from 13.6 pre-operative ). Continue to monitor -leukocytosis noted on labs today - suspect due to dexamethasone received yesterday. Afebrile. Will monitor but no evidence of infection at present. (2) S/P lumbar spinal fusion: -plan as above (3) Frequent PVCs: -noted to be bradycardic on exam today with episodes of asymptomatic bradycardia noted overnight -continue coreg for now but with holds for bradycardia - has been on this medication for years but may need to discuss dosing with pcp upon f/u (4) Diabetes: -pre-operative A1C 10.8 -has been relatively uncontrolled for ~ 10 years -on metformin and glimepiride, hold oral agents -starting insulin and will need as outpatient - appreciate pharm consult and clinical nurse educator input -may need assistance from case management determining appropriate pharmacy to obtain insulin from as previously told that his usual pharmacy could not provide insulin and it be covered (5) Hypertension: -blood pressure fluctuating overnight, goal <130/80 -continue coreg for now with holds, restarted lisinopril/hctz today - will monitor bmp and bp (6) CKD (chronic kidney disease) stage 3, GFR 30-59 ml/min: -baseline cr 1.3 - today 1.26 -monitor bmp (7) History of stroke: -continue statin, plavix (currently on hold - restart per primary service) -recommend tighter blood sugar control to reduce cardiovascular risk/events (8) DVT prophylaxis: -Teds, SCDS, ambulation per attending Disposition: Per attending Follow up: PCP Dr. Bundy upon discharge, will need close follow up for strict diabetes control to ensure proper wound healing We will continue to follow this patient. You can reach a member of the [facility]ist Team 22/11 via pager @ . Patient seen in collaboration with Dr. Wright, Please see addendum Supervising Physician Co-Signing Physician Notes Attending addendum; Patient was seen and examined the medical floor Is a status post back surgery with uncontrolled diabetes Has been started on subcu insulin Diabetic teaching Denies any symptoms On examination Hemodynamically stable No apparent distress at rest Chest-clear to auscultate bilaterally Heart-S1-S2 regular, no murmur appreciated Abdomen-benign Extremities-no edema Labs and imaging studies noted Agree with assessment and plan as outlined above by Amanda wright Subjective Pt seen in E323-1 on POD #1 Lumbar Decompression and Fusion due to Neurogenic Claudication. Pt reports marked improvement in LE symptoms related to prior spinal stenosis since procedure yesterday. He has some incisional lumbar pain but otherwise reports pain is improved. He was able to walk in [place] earlier with walker and assistance. Tolerating PT without issues. GENNY drain still in place - has had 365 ml of sanguinous drainage out. He reports tentative discharge plans for Tuesday. He has met with the clinical unit educator and continues to be amenable to insulin as outpatient although has some concerns about insurance coverage - reports he has not met with case management yet. He has not yet given himself an insulin injection but plans to do so at lunch today. He denies chest pain, SOB, Abd pain, N/V. Appetite is good. He has questions regarding a diabetic diet but reports he discussed these with the nurse educator this AM. He does report that the nurses got some low heart rates overnight (which is confirmed on review of the record). He states that his PCP put him on a medication to lower his heart rate years ago and he has been on it since then. Denies symptoms with the bradycardia. Physical Exam 2 Vital Signs (Past 24 Hours): Last Vital Signs Temp 36.5 C 04/28/18 07:01 Pulse 71 04/28/18 07:01 Resp 16 04/28/18 07:01 BP 120/70 04/28/18 07:01 Pulse Ox 95 04/28/18 07:01 Constitutional: well developed and well nourished; no acute distress Eyes: + anicteric sclerae Respiratory: no respiratory distress and no labored breathing Auscultation : lungs clear to auscultation bilaterally; no rales, no rhonchi and no wheezes Cardiovascular: Rate/Rhythm: regular rhythm and + bradycardic (rate of 54) Extremities: no calf tenderness and no pedal edema Musculoskeletal: Bilateral LE with compression stockings in place - NVI GENNY drain in place - sanguinous drainage Skin: no rashes, warm and dry
[2018-04-28] MEDS: OXYCODONE HCL IR 5 MG TAB (IMMEDIATE RELEASE) PO PRN ×2 (11:11→20:10)
--- NOTE | 2018-04-28 11:35 | Orthopedic Progress Note ---
Date of Service April 28, 2018 Assessment & Plan (1) Neurogenic claudication due to lumbar spinal stenosis: We will plan for can physical therapy today continue to monitor his GENNY output anticipate discharge home later after the weekend. Present on Admission?: Yes Subjective Back pain is controlled leg pain markedly improved Physical Exam 2 Vital Signs (Past 24 Hours): Last Vital Signs Temp 36.6 C 04/28/18 10:54 Pulse 62 04/28/18 10:54 Resp 16 04/28/18 10:54 BP 110/65 04/28/18 10:54 Pulse Ox 96 04/28/18 10:54 Physical Exam: Patient is in chair at bedside. His comfortable. Is good strength testing.
[2018-04-28] MEDS: SODIUM CHLORIDE 0.9% 1000ML 1,000 ML IV SCH (15:21)
[2018-04-28] MEDS: ATORVASTATIN 40 MG TAB PO SCH (21:22)
[2018-04-28] MEDS: DOCUSATE SODIUM/SENNA 50/8.6MG TAB PO SCH (21:22)
[2018-04-29 05:32] LABS: Basophils # (auto) 0.02 K/uL (0-0.2); Basophils % (auto) 0.2 %; Eosinophils # (auto) 0.27 K/uL (0-0.5); Eosinophils % (auto) 2.9 %; Hematocrit (blood only) 29.4 % (42-52); Hemoglobin 10.1 g/dL (14.0-18.0); Immature Granulocytes # (auto) 0.02 K/uL (0.00-0.02); Immature Granulocytes % (auto) 0.2 %; Lymphocytes # (auto) 2.08 K/uL (1.2-3.4); Lymphocytes % (auto) 22.7 %; Mean Corpuscular Hgb Conc 34.4 g/dL (32-36); Monocytes # (auto) 0.85 K/uL (0.11-0.59); Monocytes % (auto) 9.3 %; Neutrophils # (auto) 5.94 K/uL (1.4-6.5); Neutrophils % (auto) 64.7 %; Platelet Count 168 K/uL (130-400); RDW Coefficient of Variation 12.9 % (11.5-14.5); RDW Standard Deviation 40.2 fL (36.4-46.3); Red Blood Count 3.42 M/uL (4.7-6.1); White Blood Count 9.18 K/uL (4.8-10.8)
[2018-04-29] MEDS: POLYETHYLENE (MIRALAX) 17 GM PACK PO SCH ×4 (05:43→23:55)
[2018-04-29] MEDS: OXYCODONE HCL IR 5 MG TAB (IMMEDIATE RELEASE) PO PRN ×4 (05:45→23:55)
[2018-04-29 05:50] LABS: BUN Creatinine Ratio 21.1 (10-20); Calcium 8.3 mg/dl (8.5-10.1); Creatinine Clr Calc Pharmacy 62.1 ml/min; Est GFR (African American) 74.1; Est GFR (Non-African American) 63.9; Potassium 3.4 mmol/L (3.5-5.1)
[2018-04-29] MEDS: CEROVITE ADV FORMULA TAB PO SCH (08:59)
[2018-04-29] MEDS: GABAPENTIN 400 MG CAP PO SCH ×3 (08:59→21:25)
[2018-04-29] MEDS: ASCORBIC ACID 500 MG TAB PO SCH (09:00)
[2018-04-29] MEDS: INSULIN ASPART 100 UNITS/ML 3 ML PEN SC SCH ×4 (09:02→21:26)
[2018-04-29] MEDS: INSULIN GLARGINE SOLOSTAR 100 UNITS/ML 3 ML PEN SC SCH (09:03)
[2018-04-29] MEDS: CARVEDILOL 6.25 MG TAB PO SCH ×2 (09:15→21:23)
[2018-04-29] MEDS ORDERED: POTASSIUM CHLORIDE 20 MEQ TABCR PO STA (10:19)
--- NOTE | 2018-04-29 10:22 | Orthopedic Progress Note ---
Date of Service April 29, 2018 Assessment & Plan (1) Neurogenic claudication due to lumbar spinal stenosis: Continue physical therapy monitor his GENNY output anticipate discharge home tomorrow. Present on Admission?: Yes Subjective Back pain is controlled leg symptoms markedly improved Physical Exam 2 Vital Signs (Past 24 Hours): Last Vital Signs Temp 37.1 C 04/29/18 07:17 Pulse 56 L 04/29/18 09:15 Resp 18 04/29/18 07:17 BP 114/61 04/29/18 09:15 Pulse Ox 94 04/29/18 07:17 Physical Exam: Patient is sitting in the chair at bedside is good strength testing.
--- NOTE | 2018-04-29 13:20 | Hospitalist Progress Note ---
Date of Service April 29, 2018 Assessment & Plan (1) Neurogenic claudication due to lumbar spinal stenosis: POD #2 s/p Lumbar Decompression and Fusion L2-L3 by Dr. Conde EBL 175ml, GENNY drain with 365 ml out Tolerated procedure well -pain/wound management per ortho -PT/OT as directed -VTE prophylaxis per attending, SCDS/Teds -incentive spirometry -monitor H/H for abl anemia - Hgb dropped to 10.9 today (from 13.6 pre-operative ). Continue to monitor -leukocytosis noted on labs today - suspect due to dexamethasone received yesterday. Afebrile. Will monitor but no evidence of infection at present. -Pain is reasonably controlled -Has been getting physical therapy -Likely to be discharged from primary tomorrow (2) S/P lumbar spinal fusion: -plan as above (3) Frequent PVCs: -noted to be bradycardic on exam today with episodes of asymptomatic bradycardia noted overnight -continue coreg for now but with holds for bradycardia - has been on this medication for years but may need to discuss dosing with pcp upon f/u -No episode of any more PVCs No cardiac symptoms (4) Diabetes: -pre-operative A1C 10.8 -has been relatively uncontrolled for ~ 10 years -on metformin and glimepiride, hold oral agents -starting insulin and will need as outpatient - appreciate pharm consult and religious educator input -may need assistance from case management determining appropriate pharmacy to obtain insulin from as previously told that his usual pharmacy could not provide insulin and it be covered -Has had diabetic teaching -Will be discharged on insulin (5) Hypertension: -blood pressure fluctuating overnight, goal <130/80 -continue coreg for now with holds, restarted lisinopril/hctz today - will monitor bmp and bp -Blood pressure seems to be controlled (6) CKD (chronic kidney disease) stage 3, GFR 30-59 ml/min: -baseline cr 1.3 - today 1.26 -monitor bmp-kidney function remains stable (7) History of stroke: -continue statin, plavix (currently on hold - restart per primary service) -recommend tighter blood sugar control to reduce cardiovascular risk/events (8) DVT prophylaxis: -Teds, SCDS, ambulation per attending Disposition: Per attending Follow up: PCP Dr. Bundy upon discharge, will need close follow up for strict diabetes control to ensure proper wound healing We will continue to follow this patient. You [facility] via pager @ . Medically stable to be discharged on insulin Subjective Pt seen in E323-1 on POD #1 Lumbar Decompression and Fusion due to Neurogenic Claudication. Pt reports marked improvement in LE symptoms related to prior spinal stenosis since procedure yesterday. He has some incisional lumbar pain but otherwise reports pain is improved. He was able to walk in [place] earlier with walker and assistance. Tolerating PT without issues. GENNY drain still in place - has had 365 ml of sanguinous drainage out. He reports tentative discharge plans for Tuesday. He has met with the religious educator and continues to be amenable to insulin as outpatient although has some concerns about insurance coverage - reports he has not met with case management yet. He has not yet given himself an insulin injection but plans to do so at lunch today. He denies chest pain, SOB, Abd pain, N/V. Appetite is good. He has questions regarding a diabetic diet but reports he discussed these with the nurse educator this AM. He does report that the nurses got some low heart rates overnight (which is confirmed on review of the record). He states that his PCP put him on a medication to lower his heart rate years ago and he has been on it since then. Denies symptoms with the bradycardia. 04/29 Patient was seen and examined the medical floor Is out of bed on a chair He has a physical therapy Lumbar drain is still in situ Complains some pain at the back but no other symptoms Physical Exam 2 Vital Signs (Past 24 Hours): Last Vital Signs Temp 37.1 C 04/29/18 07:17 Pulse 56 L 04/29/18 09:15 Resp 18 04/29/18 07:17 BP 114/61 04/29/18 09:15 Pulse Ox 94 04/29/18 07:17 Physical Exam: Sitting on a chair without any symptoms Constitutional: well developed and well nourished; no acute distress Eyes: + anicteric sclerae Respiratory: no respiratory distress and no labored breathing Auscultation : lungs clear to auscultation bilaterally; no rales, no rhonchi and no wheezes Cardiovascular: Rate/Rhythm: regular rhythm and + bradycardic (rate of 54) Extremities: no calf tenderness and no pedal edema Gastrointestinal (Abdomen): Inspection/Auscultation: abdomen normal to inspection and normal bowel sounds Percussion/Palpation: abdomen soft Skin: no rashes, warm and dry Results & Data Laboratory Results Short CBC 04/29/18 Range/Units 05:11 WBC 9.18 (4.8-10.8) K/uL Hgb 10.1 L (14.0-18.0) g/dL Hct 29.4 L (42-52) % Plt Count 168 (130-400) K/uL BMP 04/29/18 05:11 Sodium 139 Potassium 3.4 L Chloride 105 Carbon Dioxide 28 BUN 24 H Creatinine 1.16 Glucose 94 Calcium 8.3 L Medications Administered Current Inpatient Medications Acetaminophen (Tylenol) 1,000 mg PO Q8H PRN PRN Reason: MILD Pain Rating 1,2,3 Stop: 05/27/18 13:53 Al Hydrox/Mg Hydrox/Simethicone (Maalox) 30 ml PO Q6H PRN PRN Reason: Dyspepsia Stop: 05/27/18 13:53 Ascorbic Acid (Vitamin C) 500 mg PO DAILY [facility] Stop: 05/28/18 08:59 Last Admin: 04/29/18 09:00 Dose: 500 mg Atorvastatin Calcium (Lipitor) 40 mg PO HS [facility] Stop: 05/27/18 20:59 Last Admin: 04/28/18 21:22 Dose: 40 mg Bisacodyl (Dulcolax) 10 mg [place] DAILY PRN PRN Reason: Constipation Stop: 05/27/18 13:53 Carvedilol (Coreg) 6.25 mg PO BID [facility] Stop: 05/27/18 20:59 Last Admin: 04/29/18 09:15 Dose: Not Given Dextrose (Dextrose 50%) 25 - 50 ml IV UD PRN; Protocol PRN Reason: Hypoglycemia Protocol Stop: 05/27/18 14:36 Diphenhydramine HCl (Benadryl) 25 mg PO Q6H PRN PRN Reason: Allergic Rhinitis/Insomnia Stop: 05/27/18 13:53 Famotidine (Pepcid) 20 mg PO Q12H PRN PRN Reason: Dyspepsia Stop: 05/27/18 13:53 Gabapentin (Neurontin) 400 mg PO TID [facility] Stop: 05/27/18 20:59 Last Admin: 04/29/18 08:59 Dose: 400 mg Glucagon (Glucagen) 1 mg SQ UD PRN; Protocol PRN Reason: Hypoglycemia Protocol Stop: 05/27/18 14:36 Glucose (Dex4 Glucose) 4 - 8 tabs PO UD PRN; Protocol PRN Reason: Hypoglycemia Protocol Stop: 05/27/18 14:36 Glucose (Glucose 40%) 15 - 30 gm PO UD PRN; Protocol PRN Reason: Hypoglycemia Protocol Stop: 05/27/18 14:36 Lisinopril/HCTZ (Prinzide 20/25mg) 1 tab PO QAM [facility] Stop: 05/28/18 08:59 Last Admin: 04/28/18 08:45 Dose: 1 tab Hydromorphone HCl (Dilaudid) 0.5 - 1 mg IV Q3H PRN PRN Reason: Pain Stop: 05/11/18 13:53 Hydroxyzine HCl (Vistaril) 25 mg PO Q8H PRN PRN Reason: Anxiety Stop: 05/27/18 13:53 Acetaminophen (Ofirmev) 1,000 mg in 100 mls @ 400 mls/hr IV Q8 PRN PRN Reason: MILD Pain Rating 1,2,3 Stop: 05/27/18 13:53 Lorazepam (Ativan) 0.5 mg in 1 mls @ 0.5 mls/min IV Q8H PRN PRN Reason: Sedation/Anxiety Stop: 05/27/18 13:53 Promethazine HCl 12.5 mg/ (Sodium Chloride) 50.5 mls @ 204 mls/hr IV Q6H PRN PRN Reason: Nausea &/or Vomiting Stop: 05/27/18 13:53 Insulin Aspart (Novolog Flexpen) 0 units SC ACHS [facility] Stop: 05/27/18 16:29 Last Admin: 04/29/18 09:02 Dose: 4 units Insulin Glargine (Lantus Solostar Pen) 0 units SC BID [facility]; Protocol Stop: 05/29/18 20:59 Lorazepam (Ativan) 0.5 mg PO Q8H PRN PRN Reason: Sedation/Anxiety Stop: 05/27/18 13:53 Magnesium Hydroxide (Milk Of Magnesia) 30 ml PO DAILY PRN PRN Reason: Constipation Stop: 05/27/18 13:53 Metoclopramide HCl (Reglan) 10 mg IV Q6H PRN PRN Reason: Nausea &/or Vomiting Stop: 05/27/18 13:53 Miscellaneous (Pneumococcal Vacc, Do Not Administer) 1 ea N/A PRN PRN PRN Reason: Notification Stop: 05/27/18 13:53 Miscellaneous (Flu Vaccine, Do Not Administer) 1 ea N/A PRN PRN PRN Reason: Notification Stop: 05/27/18 13:53 Miscellaneous (Carbohydrates For Hypoglycemia) 15 - 30 gm PO UD PRN PRN Reason: Hypoglycemia Treatment Stop: 05/27/18 14:36 Miscellaneous Information (Consult Glycemic Management Pharmacy) 1 ea N/A UD PRN PRN Reason: Consult Stop: 05/27/18 15:19 Multivitamins/Minerals (Multivitamin W/ Minerals) 1 tab PO DAILY [facility] Stop: 05/28/18 08:59 Last Admin: 04/29/18 08:59 Dose: 1 tab Ondansetron HCl (Zofran) 4 mg PO Q6H PRN PRN Reason: Nausea Stop: 05/27/18 13:53 Ondansetron HCl (Zofran) 4 mg IV Q6H PRN PRN Reason: Nausea &/or Vomiting Stop: 05/27/18 13:53 Oxycodone HCl (Roxicodone Immediate Rel) 5 - 10 mg PO Q4H PRN PRN Reason: Moderate-Severe Pain Stop: 05/11/18 13:53 Last Admin: 04/29/18 11:03 Dose: 10 mg Polyethylene Glycol (Miralax Powder Packet) 17 gm PO Q6 [facility] Stop: 05/28/18 05:59 Last Admin: 04/29/18 12:48 Dose: 17 gm Senna/Docusate Sodium (Senokot S) 2 tab PO HS [facility] Stop: 05/27/18 20:59 Last Admin: 04/28/18 21:22 Dose: 2 tab Sodium Biphosphate/Sodium Phosphate (Fleet Enema) 132 ml SD ONE PRN PRN Reason: Constipation Stop: 05/27/18 13:53 Tramadol HCl (Ultram) 50 - 100 mg PO Q4H PRN PRN Reason: Moderate-Severe pain Stop: 05/27/18 13:53
--- NOTE | 2018-04-29 13:39 | Pharmacy Report ---
Pharmacy Glycemic Short Note 2 - Date of Service April 29, 2018 - Glycemic Short BSG Results (Last 24 hours): 04/28/18 04/28/18 04/29/18 17:03 20:51 05:11 Glucose 94 POC Glucose 231 H 231 H 04/29/18 04/29/18 08:04 12:04 Glucose POC Glucose 94 203 H ASSESSMENT: * Mr. Minaya BSGs have largely remained elevated, likely due to 12mg IV DXM given dania-operatively. PLAN FOR INPATIENT GLYCEMIC CONTROL: * Hold outpatient oral diabetes medications * Basal insulin * Lantus scale SQ BID * Give 10 units for BSGs <200mg/dL * Give 15 units for BSGs >/=200mg/dL * Bolus insulin * NovoLog per scale ACHS or Q6hrs while NPO * Goal Range: Low 110 mg/dL - High 140 mg/dL * Correction Factor: 20 mg/dL/unit * Nutritional / Prandial insulin per carb ratio of 1 unit per 6 grams CHO consumed PLAN FOR DISCHARGE: * Given Mr. Bach's concern for the parrish of insulin I would recommend [employer] of insulins * NPH BIDM: 15 units BIDM * Regular insulin: 10 units TIDM * Will defer further titrations to outpt provider
[2018-04-29 19:24] LABS: Basophils # (auto) 0.02 K/uL (0-0.2); Basophils % (auto) 0.2 %; Eosinophils # (auto) 0.25 K/uL (0-0.5); Eosinophils % (auto) 3.1 %; Hematocrit (blood only) 31.5 % (42-52); Hemoglobin 10.8 g/dL (14.0-18.0); Immature Granulocytes # (auto) 0.03 K/uL (0.00-0.02); Immature Granulocytes % (auto) 0.4 %; Lymphocytes # (auto) 1.67 K/uL (1.2-3.4); Lymphocytes % (auto) 20.6 %; Mean Corpuscular Volume 86.3 fL (80-100); Mean Platelet Volume 10.7 fL (7.4-10.4); Monocytes # (auto) 0.86 K/uL (0.11-0.59); Monocytes % (auto) 10.6 %; Neutrophils # (auto) 5.28 K/uL (1.4-6.5); Neutrophils % (auto) 65.1 %; Platelet Count 184 K/uL (130-400); RDW Coefficient of Variation 12.8 % (11.5-14.5); RDW Standard Deviation 40.6 fL (36.4-46.3); Red Blood Count 3.65 M/uL (4.7-6.1); White Blood Count 8.11 K/uL (4.8-10.8)
[2018-04-29 19:42] LABS: Mean Corpuscular Hgb Conc 34.3 g/dL (32-36)
[2018-04-29 19:44] LABS: BUN Creatinine Ratio 18.1 (10-20); Calcium 8.5 mg/dl (8.5-10.1); Creatinine Clr Calc Pharmacy 59.5 ml/min; Est GFR (African American) 70.4; Est GFR (Non-African American) 60.7; Magnesium 1.7 mg/dl (1.8-2.4); Potassium 3.7 mmol/L (3.5-5.1)
[2018-04-29] MEDS ORDERED: MAGNESIUM SULFATE / D5W 1 GM/100 ML BAG IV ONE (20:15)
[2018-04-29 20:57] LABS: Appearance Urine Cloudy (Clear); Bacteria Urine Automated Negative (Negative); Bilirubin Urine Negative (Negative); Cast Urine Automated 0 /lpf (0-5); Color Urine Yellow; Epithelial Cell Urine Auto 0-5 /lpf (0-5); Glucose Urine UA 2+ (Negative); Ketones Urine Negative (Negative); Leukocyte Esterase Urine Negative (Negative); Nitrite Urine Negative (Negative); Protein Urine Negative (Negative); Specific Gravity Urine 1.023 (1.000-1.030); Urobilinogen Urine Negative (Negative); WBC Urine Automated 0 /hpf (0-5)
[2018-04-29] MEDS ORDERED: INSULIN GLARGINE SOLOSTAR 100 UNITS/ML 3 ML PEN SC SCH (21:00)
[2018-04-29] MEDS: DOCUSATE SODIUM/SENNA 50/8.6MG TAB PO SCH (21:25)
[2018-04-29] MEDS: ATORVASTATIN 40 MG TAB PO SCH (21:25)
[2018-04-30] MEDS: POLYETHYLENE (MIRALAX) 17 GM PACK PO SCH ×2 (06:14→13:01)
[2018-04-30] MEDS: CARVEDILOL 6.25 MG TAB PO SCH ×2 (08:34→21:12)
[2018-04-30] MEDS: CEROVITE ADV FORMULA TAB PO SCH (08:35)
[2018-04-30] MEDS: ASCORBIC ACID 500 MG TAB PO SCH (08:35)
[2018-04-30] MEDS: GABAPENTIN 400 MG CAP PO SCH ×3 (08:35→21:12)
[2018-04-30] MEDS: TRAMADOL HCL 50 MG TABLET PO PRN ×3 (08:39→18:59)
[2018-04-30] MEDS: INSULIN GLARGINE SOLOSTAR 100 UNITS/ML 3 ML PEN SC SCH ×3 (08:53→21:14)
[2018-04-30] MEDS: INSULIN ASPART 100 UNITS/ML 3 ML PEN SC SCH ×5 (08:54→21:15)
--- NOTE | 2018-04-30 10:43 | Orthopedic Progress Note ---
Date of Service April 30, 2018 Assessment & Plan (1) Neurogenic claudication due to lumbar spinal stenosis: At this time we will continue physical therapy today is he had some episodes of generalized weakness yesterday. We suspect this is a combination of oral pain medications as well as introduction to insulin. We are transitioning him from oxycodone to tramadol today for pain. Most likely discharge tomorrow. Present on Admission?: Yes Subjective Patient complaining of back pain leg pain and Physical Exam 2 Vital Signs (Past 24 Hours): Last Vital Signs Temp 36.8 C 04/30/18 06:48 Pulse 101 H 04/30/18 08:27 Resp 16 04/30/18 06:48 BP 140/84 04/30/18 08:27 Pulse Ox 93 04/30/18 06:48 Physical Exam: On exam he has good strength testing does appear comfortable at this time.
--- NOTE | 2018-04-30 10:45 | Hospitalist Progress Note ---
Date of Service April 30, 2018 Assessment & Plan (1) Neurogenic claudication due to lumbar spinal stenosis: POD #3 s/p Lumbar Decompression and Fusion L2-L3 by Dr. Conde EBL 175ml, GENNY drain with 365 ml out Tolerated procedure well -pain/wound management per ortho -PT/OT as directed -VTE prophylaxis per attending, SCDS/Teds -incentive spirometry -monitor H/H for abl anemia - Hgb dropped to 10.9 today (from 13.6 pre-operative ). Continue to monitor -leukocytosis noted on labs today - suspect due to dexamethasone received yesterday. Afebrile. Will monitor but no evidence of infection at present. -Pain is reasonably controlled -Has been getting physical therapy -An episode of lethargy last evening with seems to be resolved -No hypoglycemia noted and the blood counts remained unremarkable -Medically stable this morning (2) S/P lumbar spinal fusion: -plan as above (3) Frequent PVCs: -noted to be bradycardic on exam today with episodes of asymptomatic bradycardia noted overnight -continue coreg for now but with holds for bradycardia - has been on this medication for years but may need to discuss dosing with pcp upon f/u -No episode of any more PVCs No cardiac symptoms (4) Diabetes: -pre-operative A1C 10.8 -has been relatively uncontrolled for ~ 10 years -on metformin and glimepiride, hold oral agents -starting insulin and will need as outpatient - appreciate pharm consult and family living educator input -may need assistance from case management determining appropriate pharmacy to obtain insulin from as previously told that his usual pharmacy could not provide insulin and it be covered -Has had diabetic teaching -Will be discharged on insulin -Again expressed 1 use of insulin for diabetic control right now -No episodes of hypoglycemia on insulin -Medically stable (5) Hypertension: -blood pressure fluctuating overnight, goal <130/80 -continue coreg for now with holds, restarted lisinopril/hctz today - will monitor bmp and bp -Blood pressure seems to be controlled (6) CKD (chronic kidney disease) stage 3, GFR 30-59 ml/min: -baseline cr 1.3 - today 1.26 -monitor bmp-kidney function remains stable (7) History of stroke: -continue statin, plavix (currently on hold - restart per primary service) -recommend tighter blood sugar control to reduce cardiovascular risk/events (8) DVT prophylaxis: -Teds, SCDS, ambulation per attending Disposition: Per attending Follow up: PCP Dr. Bundy upon discharge, will need close follow up for strict diabetes control to ensure proper wound healing We will continue to follow this patient. You [facility] via pager @ . Medically stable to be discharged on insulin Subjective Pt seen in E323-1 on POD #1 Lumbar Decompression and Fusion due to Neurogenic Claudication. Pt reports marked improvement in LE symptoms related to prior spinal stenosis since procedure yesterday. He has some incisional lumbar pain but otherwise reports pain is improved. He was able to walk in [place] earlier with walker and assistance. Tolerating PT without issues. GENNY drain still in place - has had 365 ml of sanguinous drainage out. He reports tentative discharge plans for Tuesday. He has met with the ems educator and continues to be amenable to insulin as outpatient although has some concerns about insurance coverage - reports he has not met with case management yet. He has not yet given himself an insulin injection but plans to do so at lunch today. He denies chest pain, SOB, Abd pain, N/V. Appetite is good. He has questions regarding a diabetic diet but reports he discussed these with the nurse educator this AM. He does report that the nurses got some low heart rates overnight (which is confirmed on review of the record). He states that his PCP put him on a medication to lower his heart rate years ago and he has been on it since then. Denies symptoms with the bradycardia. 04/29 Patient was seen and examined the medical floor Is out of bed on a chair He has a physical therapy Lumbar drain is still in situ Complains some pain at the back but no other symptoms 04/30 The patient was seen and examined in medical floor He has had an issue of extreme tiredness last evening but remained hemodynamically stable with blood sugar of 150 He did not have any fever and/or chills and his blood counts remain unremarkable This morning he does not have any of those symptoms Physical Exam 2 Vital Signs (Past 24 Hours): Last Vital Signs Temp 36.8 C 04/30/18 06:48 Pulse 101 H 04/30/18 08:27 Resp 16 04/30/18 06:48 BP 140/84 04/30/18 08:27 Pulse Ox 93 04/30/18 06:48 Constitutional: well developed and well nourished; no acute distress Eyes: + anicteric sclerae Respiratory: no respiratory distress and no labored breathing Auscultation : lungs clear to auscultation bilaterally; no rales, no rhonchi and no wheezes Cardiovascular: Rate/Rhythm: regular rhythm and + bradycardic (rate of 54) Extremities: no calf tenderness and no pedal edema Gastrointestinal (Abdomen): Inspection/Auscultation: abdomen normal to inspection and normal bowel sounds Percussion/Palpation: abdomen soft Skin: no rashes, warm and dry Neurologic: moves all extremities and awake; no focal motor deficits Results & Data Laboratory Results Short CBC 04/29/18 Range/Units 19:05 WBC 8.11 (4.8-10.8) K/uL Hgb 10.8 L (14.0-18.0) g/dL Hct 31.5 L (42-52) % Plt Count 184 (130-400) K/uL BMP 04/29/18 19:05 Sodium 136 Potassium 3.7 Chloride 102 Carbon Dioxide 26 BUN 22 H Creatinine 1.21 Glucose 146 H Calcium 8.5 Urine 04/29/18 Range/Units 20:27 Urine Color Yellow Urine Appearance Cloudy H (Clear) Urine pH 5.0 (4.5-7.5) Ur Specific [place] 1.023 (1.000-1.030) Urine Protein Negative (Negative) Urine Glucose (UA) 2+ H (Negative) Medications Administered Current Inpatient Medications Acetaminophen (Tylenol) 1,000 mg PO Q8H PRN PRN Reason: MILD Pain Rating 1,2,3 Stop: 05/27/18 13:53 Last Admin: 04/29/18 19:42 Dose: 1,000 mg Al Hydrox/Mg Hydrox/Simethicone (Maalox) 30 ml PO Q6H PRN PRN Reason: Dyspepsia Stop: 05/27/18 13:53 Ascorbic Acid (Vitamin C) 500 mg PO DAILY [facility] Stop: 05/28/18 08:59 Last Admin: 04/30/18 08:35 Dose: 500 mg Atorvastatin Calcium (Lipitor) 40 mg PO HS [facility] Stop: 05/27/18 20:59 Last Admin: 04/29/18 21:25 Dose: 40 mg Bisacodyl (Dulcolax) 10 mg [place] DAILY PRN PRN Reason: Constipation Stop: 05/27/18 13:53 Carvedilol (Coreg) 6.25 mg PO BID [facility] Stop: 05/27/18 20:59 Last Admin: 04/30/18 08:34 Dose: 6.25 mg Dextrose (Dextrose 50%) 25 - 50 ml IV UD PRN; Protocol PRN Reason: Hypoglycemia Protocol Stop: 05/27/18 14:36 Diphenhydramine HCl (Benadryl) 25 mg PO Q6H PRN PRN Reason: Allergic Rhinitis/Insomnia Stop: 05/27/18 13:53 Famotidine (Pepcid) 20 mg PO Q12H PRN PRN Reason: Dyspepsia Stop: 05/27/18 13:53 Gabapentin (Neurontin) 400 mg PO TID [facility] Stop: 05/27/18 20:59 Last Admin: 04/30/18 08:35 Dose: 400 mg Glucagon (Glucagen) 1 mg SQ UD PRN; Protocol PRN Reason: Hypoglycemia Protocol Stop: 05/27/18 14:36 Glucose (Dex4 Glucose) 4 - 8 tabs PO UD PRN; Protocol PRN Reason: Hypoglycemia Protocol Stop: 05/27/18 14:36 Glucose (Glucose 40%) 15 - 30 gm PO UD PRN; Protocol PRN Reason: Hypoglycemia Protocol Stop: 05/27/18 14:36 Lisinopril/HCTZ (Prinzide 20/25mg) 1 tab PO QAM [facility] Stop: 05/28/18 08:59 Last Admin: 04/28/18 08:45 Dose: 1 tab Hydromorphone HCl (Dilaudid) 0.5 - 1 mg IV Q3H PRN PRN Reason: Pain Stop: 05/11/18 13:53 Hydroxyzine HCl (Vistaril) 25 mg PO Q8H PRN PRN Reason: Anxiety Stop: 05/27/18 13:53 Acetaminophen (Ofirmev) 1,000 mg in 100 mls @ 400 mls/hr IV Q8 PRN PRN Reason: MILD Pain Rating 1,2,3 Stop: 05/27/18 13:53 Lorazepam (Ativan) 0.5 mg in 1 mls @ 0.5 mls/min IV Q8H PRN PRN Reason: Sedation/Anxiety Stop: 05/27/18 13:53 Promethazine HCl 12.5 mg/ (Sodium Chloride) 50.5 mls @ 204 mls/hr IV Q6H PRN PRN Reason: Nausea &/or Vomiting Stop: 05/27/18 13:53 Insulin Aspart (Novolog Flexpen) 0 units SC ACHS [facility] Stop: 05/27/18 16:29 Last Admin: 04/30/18 09:01 Dose: Not Given Insulin Glargine (Lantus Solostar Pen) 12 units SC BID [facility]; Protocol Stop: 05/30/18 08:59 Last Admin: 04/30/18 09:01 Dose: Not Given Lorazepam (Ativan) 0.5 mg PO Q8H PRN PRN Reason: Sedation/Anxiety Stop: 05/27/18 13:53 Magnesium Hydroxide (Milk Of Magnesia) 30 ml PO DAILY PRN PRN Reason: Constipation Stop: 05/27/18 13:53 Metoclopramide HCl (Reglan) 10 mg IV Q6H PRN PRN Reason: Nausea &/or Vomiting Stop: 05/27/18 13:53 Miscellaneous (Pneumococcal Vacc, Do Not Administer) 1 ea N/A PRN PRN PRN Reason: Notification Stop: 05/27/18 13:53 Miscellaneous (Flu Vaccine, Do Not Administer) 1 ea N/A PRN PRN PRN Reason: Notification Stop: 05/27/18 13:53 Miscellaneous (Carbohydrates For Hypoglycemia) 15 - 30 gm PO UD PRN PRN Reason: Hypoglycemia Treatment Stop: 05/27/18 14:36 Miscellaneous Information (Consult Glycemic Management Pharmacy) 1 ea N/A UD PRN PRN Reason: Consult Stop: 05/27/18 15:19 Multivitamins/Minerals (Multivitamin W/ Minerals) 1 tab PO DAILY [facility] Stop: 05/28/18 08:59 Last Admin: 04/30/18 08:35 Dose: 1 tab Ondansetron HCl (Zofran) 4 mg PO Q6H PRN PRN Reason: Nausea Stop: 05/27/18 13:53 Ondansetron HCl (Zofran) 4 mg IV Q6H PRN PRN Reason: Nausea &/or Vomiting Stop: 05/27/18 13:53 Oxycodone HCl (Roxicodone Immediate Rel) 5 - 10 mg PO Q4H PRN PRN Reason: Moderate-Severe Pain Stop: 05/11/18 13:53 Last Admin: 04/29/18 23:55 Dose: 10 mg Polyethylene Glycol (Miralax Powder Packet) 17 gm PO Q6 [facility] Stop: 05/28/18 05:59 Last Admin: 04/30/18 06:14 Dose: 17 gm Senna/Docusate Sodium (Senokot S) 2 tab PO HS [facility] Stop: 05/27/18 20:59 Last Admin: 04/29/18 21:25 Dose: 2 tab Sodium Biphosphate/Sodium Phosphate (Fleet Enema) 132 ml [place] ONE PRN PRN Reason: Constipation Stop: 05/27/18 13:53 Tramadol HCl (Ultram) 50 - 100 mg PO Q4H PRN PRN Reason: Moderate-Severe pain Stop: 05/27/18 13:53 Last Admin: 04/30/18 08:39 Dose: 100 mg
[2018-04-30] MEDS: ATORVASTATIN 40 MG TAB PO SCH (21:11)
[2018-04-30] MEDS: DOCUSATE SODIUM/SENNA 50/8.6MG TAB PO SCH (21:14)
[2018-05-01] MEDS: TRAMADOL HCL 50 MG TABLET PO PRN ×3 (00:11→11:29)
[2018-05-01 07:27] LABS: Estimated Average Glucose 252 mg/dl
[2018-05-01] MEDS: CEROVITE ADV FORMULA TAB PO SCH (08:29)
[2018-05-01] MEDS: CARVEDILOL 6.25 MG TAB PO SCH (08:29)
[2018-05-01] MEDS: GABAPENTIN 400 MG CAP PO SCH (08:29)
[2018-05-01] MEDS: ASCORBIC ACID 500 MG TAB PO SCH (08:30)
[2018-05-01] MEDS: INSULIN ASPART 100 UNITS/ML 3 ML PEN SC SCH ×2 (08:30→08:39)
[2018-05-01] MEDS: INSULIN GLARGINE SOLOSTAR 100 UNITS/ML 3 ML PEN SC SCH (08:31)
--- NOTE | 2018-05-01 08:36 | Pharmacy Report ---
Pharmacy Glycemic Short Note 2 - Date of Service May 01, 2018 - Glycemic Short BSG Results (Last 24 hours): 04/30/18 04/30/18 05/01/18 17:02 20:23 08:05 POC Glucose 240 H 264 H 212 H ASSESSMENT: 05/01 * Mr. Bach has been refusing most of his insulin doses over the past 24 hours and now BSGs are in the 200s. The nurse reported that he "just doesn't want to take it". I spoke to Mr. Bach myself and had a discussion with him about his concerns regarding insulin. He said Dr. Bundy has been talking about it for awhile. I explained to him that good glycemic control in the postop setting is crucial to prevent postop infections. He was concerned because he didn't feel good when we started the insulin earlier this admission, but this was most likely because he's used to running in the 200s. He did not have a low BSG this admission. At the end of the conversation, the patient seemed more amenable to insulin but wanted to talk it over with his . PLAN FOR INPATIENT GLYCEMIC CONTROL: * Continue to hold outpatient oral diabetes medications * Basal insulin - no change * Lantus 12 units BID * Bolus insulin - no change * NovoLog per scale ACHS or Q6hrs while NPO * Goal Range: Low 110 mg/dL - High 140 mg/dL * Correction Factor: 20 mg/dL/unit * Nutritional / Prandial insulin per carb ratio of 1 unit per 6 grams CHO consumed PLAN FOR DISCHARGE: * Initiate once daily basal insulin - would recommend 10 units initially (Dr. Card reports he is going to let Dr. Bundy do this as an outpatient since the patient would prefer this) * Continue glimepiride and metformin
--- NOTE | 2018-05-01 10:01 | Discharge Summary ---
Date of Service May 01, 2018 Admission HPI Per Admitting Provider This is a 67-year-old male who presents with significant back and left leg pain. He contributes to significant quad deficit and weakness. It has been progressive in nature with significant decline over the past several days. Subsequently moving forward with an urgent decompression and fusion. Principal Diagnosis Lumbar spinal stenosis with neurogenic claudication and radiculopathy Discharge Data Allergies Allergy/AdvReac Type Severity Reaction Status Date / Time No Known Allergies Allergy Verified 04/27/18 08:30 Consultations 04/27/18 13:54 Consult Case Management - Discharge Planning Routine Consult Hospitalist Routine Procedures Performed Operation Date: 04/27/18 10:05 Actual Procedures p L2-L3 Decompression and Fusion, Interbody Fusion, Use of Infuse and Osteoamp( Not Applicable) - Kerwin Conde DO Ordered Studies 04/27/18 07:00 FL fluoroscopy >1hr Routine FL lumbar spine 2-3V Routine Hospital Course (1) Neurogenic claudication due to lumbar spinal stenosis: Patient underwent lumbar decompression fusion tolerated this well was taken to the orthopedic floor postoperatively. Postoperative day #1 his leg symptoms are markedly improved. He was tolerating therapy throughout his hospital stay. GENNY drain decreasing appropriately. Pain well controlled. Subsequently discharged home. Discharge orders and instructions found in the chart for further review. Total Time Total Time Spent Total Time Spent (In Minutes): Not applicable Discharge Plan Discharge Items Patient Disposition: Home - Self-Care Reason For Visit: Intervertebral Disc Disorders with Radiculopathy Discharge Diagnosis: Lumbar spinal stenosis with herniated was pulposis Discharge Goals: Decrease discomfort Activity: Per 'Additional Instructions' section Non-emergency contact: Primary Care Provider Call non-emergency contact if: you have any medication questions Follow-up/Referrals: Geovani Agrawal MD [Primary Care Provider] - Diet: Regular Addtl Provider Instructions: ACTIVITY RECOMMENDATIONS: SELF CARE INSTRUCTIONS AFTER THORACIC/LUMBAR FUSIONS 1. You may walk to your tolerance. It is good exercise for your legs and back. Expect some back and intermittent leg aches and pains. 2. You may perform "counter-top" level activities (make a sandwich, lisette with a project, etc.). 3. No bending or lifting of more than 10 pounds or back twisting of any nature (roll like a log when turning in bed). 4. You may ride in a car for 20-30 minutes at a time. No driving until after your first visit with your doctor. 5. Frequent changes of position and restricting sitting to 30 minutes at a time will help limit the amount of back spasms and stiffness you may experience. 6. You may discontinue the use of ambulatory aids (cane, crutches, etc.) once your strength and confidence allow. 7. You may press operator instant print shop the shower and let water strike your incision when you arrive home at least once daily. Do not take a tub bath, sit in a hot tub or go into a swimming pool until after your first recheck in the office. SPECIAL CARE INSTRUCTIONS: VERY IMPORTANT TO READ AND REVIEW A. Your surgical incision has been closed with a cosmetic suture under the skin that will dissolve in about 6 weeks. In 14 days, you can use a pair of clean scissors and cut the suture that is left outside of the skin at the ends of your incision. 1. The small skin tapes can be removed 7 days after surgery if they have not fallen off by that point. 2. You may keep the wound open to air as much as possible to promote healing after post-op day number 5 unless told otherwise by your doctor. 3. If you think the wound looks like it is becoming infected (redness or worsening drainage) and/or you are experiencing fever, chill or worsening back pain and muscle spasms, contact the office so that we may evaluate you as soon as possible. B. Complications are uncommon, but please contact us if you have any signs or symptoms of: 1. wound infection (fever higher than 102.5 degrees F, redness, separation of wound, drainage, or increasing pain from the incision) 2. blood clots in legs (pain, swelling, redness and warmth in legs) 3. urinary tract infection (fever higher than 102.5 degrees F, burning upon urination or increased frequency of urination) 4. nerve problems (inability to walk on your toes or heels, numbness, loss of bowel or bladder control) 5. any other symptoms that concern you C. Please call the office at if you have any concerns or questions about your operation or recovery. D. No smoking! Smoking drastically decreases the chance of a solid fusion. E. Do not take any anti-inflammatory medications (Indocin, Advil, Motrin, Aspirin, Naprosyn, etc.) as these may inhibit the chance of a solid fusion. Tylenol is okay to take for pain. MANAGING PAIN AFTER SPINAL SURGERY 1. Narcotic medication is intended for short-term use and will be provided for surgical pain. Surgical pain usually lasts for a period of 4-6 weeks. Narcotic medication includes Percocet, Vicodin, Darvocet, Tylenol #3 or Lortab. 2. Longer-term pain is more appropriately treated with non-narcotic medication such as Tylenol ES. 3. Muscle spasm is not appropriately treated with narcotics. Muscle relaxers such as Soma, Flexeril or Skelaxin can be used along with Tylenol ES. 4. Remember that we all live with some "aches and pains". This is not unusual or uncommon after an injury or as we get older. a. Back pain is expected and may include muscle spasms for 4 to 6 weeks after surgery. The pain should gradually improve. If the pain worsens for no apparent reason, please contact the office. b. Intermittent leg pain may also be experienced and should not be concerned about unless it worsens for no apparent reason. If so, please contact the office. 5. We will provide appropriate medication within the normal guidelines of their prescribed use. We will also be very cautious and aware of potential abuse and extended duration of patients' medication needs. a. Pain medications are for your comfort and to assist with sleep and rest so that the tissue can heal. They are not provided in order to return to normal activity and should not be used through the day. To do so or worsening pain at night can result from ongoing tissue damage and development of tolerance to the prescribed medicine. 6. Please allow 2-3 days to process refills. Prescriptions will not be mailed but must be picked up at the office. FOLLOW UP VISIT: Keep your scheduled follow-up appointment. Any questions, please call the office at . Prescriptions: New tramadol 50 mg Tablet 50 mg PO Q4H PRN (Reason: Pain, Moderate) Qty: 30 RF: 0 oxycodone 5 mg Tablet 5 mg PO Q4H PRN (Reason: Pain (Scale Score 7-10)) Qty: 30 RF: 0 Continue atorvastatin 40 mg Tablet 40 mg PO HS RF: 0 carvedilol 6.25 mg Tablet 6.25 mg PO BID RF: 0 clopidogrel 75 mg Tablet 75 mg PO DAILY RF: 0 metformin 1,000 mg Tablet 1,000 mg PO BID RF: 0 glimepiride 4 mg Tablet 8 mg PO QAM RF: 0 lisinopril-hydrochlorothiazide 20-25 mg Tablet 1 tab PO QAM RF: 0 acetaminophen [Acetaminophen Extra Strength] 500 mg Tablet 500 mg PO QID PRN (Reason: Pain) RF: 0 ascorbic acid (vitamin C) [Vitamin C] 500 mg Capsule, Extended Release 500 mg PO DAILY RF: 0 mvwlkbfp-odt-SK-lycopen-lutein [Centrum Silver] 0.4-300-250 mg-mcg-mcg Tablet 1 tab PO DAILY RF: 0 vitamin K42-mazei acid 1,000-400 mcg Lozenge 1 dose DAILY RF: 0 gabapentin 400 mg capsule 400 mg PO TID RF: 0 Visit Report Forms: My [facility] Portal Stand-Alone Forms: [facility] Discharge Orders: Discharge Order (Routine); Ordered 05/01/18 Ordered By: Kerwin Conde Admission Data Admit Date/Time: 04/27/18 12:46 Attending Provider: Kerwin Conde Admit Provider: Kerwin Conde Primary Care Provider: Geovani Agrawal Other Providers: Rodríguez Munoz ; Rimma Card Service: Surgical Services
--- NOTE | 2018-05-01 10:35 | Hospitalist Progress Note ---
Date of Service May 01, 2018 Assessment & Plan (1) Neurogenic claudication due to lumbar spinal stenosis: POD #4 s/p Lumbar Decompression and Fusion L2-L3 by Dr. Conde EBL 175ml, GENNY drain with 365 ml out Tolerated procedure well -pain/wound management per ortho -PT/OT as directed -VTE prophylaxis per attending, SCDS/Teds -incentive spirometry -monitor H/H for abl anemia - Hgb dropped to 10.9 today (from 13.6 pre-operative ). Continue to monitor -leukocytosis noted on labs today - suspect due to dexamethasone received yesterday. Afebrile. Will monitor but no evidence of infection at present. -Pain is reasonably controlled -Has been getting physical therapy -An episode of lethargy last evening with seems to be resolved -No hypoglycemia noted and the blood counts remained unremarkable -Medically stable to be discharged (2) S/P lumbar spinal fusion: -plan as above (3) Frequent PVCs: -noted to be bradycardic on exam today with episodes of asymptomatic bradycardia noted overnight -continue coreg for now but with holds for bradycardia - has been on this medication for years but may need to discuss dosing with pcp upon f/u -No episode of any more PVCs No cardiac symptoms (4) Diabetes: -pre-operative A1C 10.8 -has been relatively uncontrolled for ~ 10 years -on metformin and glimepiride, hold oral agents -starting insulin and will need as outpatient - appreciate pharm consult and high risk case manager input -may need assistance from case management determining appropriate pharmacy to obtain insulin from as previously told that his usual pharmacy could not provide insulin and it be covered -Has had diabetic teaching -Will be discharged on insulin -Again expressed 1 use of insulin for diabetic control right now -No episodes of hypoglycemia on insulin -Patient was strongly advised to continue with insulin -He was also advised to make an appointment with primary care doctor in 7 days and was given the offer to make that appointment by me -Seems to be noncompliant with insulin -Discussed about importance of diet and insulin to manage his diabetes (5) Hypertension: -blood pressure fluctuating overnight, goal <130/80 -continue coreg for now with holds, restarted lisinopril/hctz today - will monitor bmp and bp -Blood pressure seems to be controlled (6) CKD (chronic kidney disease) stage 3, GFR 30-59 ml/min: -baseline cr 1.3 - today 1.26 -monitor bmp-kidney function remains stable (7) History of stroke: -continue statin, plavix (currently on hold - restart per primary service) -recommend tighter blood sugar control to reduce cardiovascular risk/events (8) DVT prophylaxis: -Teds, SCDS, ambulation per attending Disposition: Per attending Follow up: PCP Dr. Bundy upon discharge, will need close follow up for strict diabetes control to ensure proper wound healing We will continue to follow this patient. You can reach a [facility] via pager @ . Medically stable to be discharged on insulin Subjective Pt seen in E323-1 on POD #1 Lumbar Decompression and Fusion due to Neurogenic Claudication. Pt reports marked improvement in LE symptoms related to prior spinal stenosis since procedure yesterday. He has some incisional lumbar pain but otherwise reports pain is improved. He was able to walk in [place] earlier with walker and assistance. Tolerating PT without issues. GENNY drain still in place - has had 365 ml of sanguinous drainage out. He reports tentative discharge plans for Tuesday. He has met with the decorative engraver apprentice and continues to be amenable to insulin as outpatient although has some concerns about insurance coverage - reports he has not met with case management yet. He has not yet given himself an insulin injection but plans to do so at lunch today. He denies chest pain, SOB, Abd pain, N/V. Appetite is good. He has questions regarding a diabetic diet but reports he discussed these with the nurse educator this AM. He does report that the nurses got some low heart rates overnight (which is confirmed on review of the record). He states that his PCP put him on a medication to lower his heart rate years ago and he has been on it since then. Denies symptoms with the bradycardia. 04/29 Patient was seen and examined the medical floor Is out of bed on a chair He has a physical therapy Lumbar drain is still in situ Complains some pain at the back but no other symptoms 04/30 The patient was seen and examined in medical floor He has had an issue of extreme tiredness last evening but remained hemodynamically stable with blood sugar of 150 He did not have any fever and/or chills and his blood counts remain unremarkable This morning he does not have any of those symptoms 05/01 Patient was seen and examined the medical floor Status post lumbar surgery and will be going home today He has also uncontrolled diabetes and was started on insulin He is not so compliant with insulin and treatment Is going to his primary care doctor and decide further on diabetes management Physical Exam 2 Vital Signs (Past 24 Hours): Last Vital Signs Temp 36.9 C 05/01/18 07:19 Pulse 46 L 05/01/18 07:19 Resp 17 05/01/18 07:19 BP 144/63 H 05/01/18 07:19 Pulse Ox 96 05/01/18 07:19 Constitutional: well developed and well nourished; no acute distress Eyes: + anicteric sclerae Respiratory: no respiratory distress and no labored breathing Auscultation : lungs clear to auscultation bilaterally; no rales, no rhonchi and no wheezes Cardiovascular: Rate/Rhythm: regular rhythm and + bradycardic (rate of 54) Extremities: no calf tenderness and no pedal edema Gastrointestinal (Abdomen): Inspection/Auscultation: abdomen normal to inspection and normal bowel sounds Percussion/Palpation: abdomen soft Skin: no rashes, warm and dry Neurologic: moves all extremities and awake; no focal motor deficits Results & Data Medications Administered Current Inpatient Medications Acetaminophen (Tylenol) 1,000 mg PO Q8H PRN PRN Reason: MILD Pain Rating 1,2,3 Stop: 05/27/18 13:53 Last Admin: 04/29/18 19:42 Dose: 1,000 mg Al Hydrox/Mg Hydrox/Simethicone (Maalox) 30 ml PO Q6H PRN PRN Reason: Dyspepsia Stop: 05/27/18 13:53 Ascorbic Acid (Vitamin C) 500 mg PO DAILY [facility] Stop: 05/28/18 08:59 Last Admin: 05/01/18 08:30 Dose: 500 mg Atorvastatin Calcium (Lipitor) 40 mg PO HS [facility] Stop: 05/27/18 20:59 Last Admin: 04/30/18 21:11 Dose: 40 mg Bisacodyl (Dulcolax) 10 mg MD DAILY PRN PRN Reason: Constipation Stop: 05/27/18 13:53 Carvedilol (Coreg) 6.25 mg PO BID [facility] Stop: 05/27/18 20:59 Last Admin: 05/01/18 08:29 Dose: Not Given Dextrose (Dextrose 50%) 25 - 50 ml IV UD PRN; Protocol PRN Reason: Hypoglycemia Protocol Stop: 05/27/18 14:36 Diphenhydramine HCl (Benadryl) 25 mg PO Q6H PRN PRN Reason: Allergic Rhinitis/Insomnia Stop: 05/27/18 13:53 Famotidine (Pepcid) 20 mg PO Q12H PRN PRN Reason: Dyspepsia Stop: 05/27/18 13:53 Gabapentin (Neurontin) 400 mg PO TID [facility] Stop: 05/27/18 20:59 Last Admin: 05/01/18 08:29 Dose: 400 mg Glucagon (Glucagen) 1 mg SQ UD PRN; Protocol PRN Reason: Hypoglycemia Protocol Stop: 05/27/18 14:36 Glucose (Dex4 Glucose) 4 - 8 tabs PO UD PRN; Protocol PRN Reason: Hypoglycemia Protocol Stop: 05/27/18 14:36 Glucose (Glucose 40%) 15 - 30 gm PO UD PRN; Protocol PRN Reason: Hypoglycemia Protocol Stop: 05/27/18 14:36 Lisinopril/HCTZ (Prinzide 20/25mg) 1 tab PO QAM [facility] Stop: 05/28/18 08:59 Last Admin: 04/28/18 08:45 Dose: 1 tab Hydromorphone HCl (Dilaudid) 0.5 - 1 mg IV Q3H PRN PRN Reason: Pain Stop: 05/11/18 13:53 Hydroxyzine HCl (Vistaril) 25 mg PO Q8H PRN PRN Reason: Anxiety Stop: 05/27/18 13:53 Acetaminophen (Ofirmev) 1,000 mg in 100 mls @ 400 mls/hr IV Q8 PRN PRN Reason: MILD Pain Rating 1,2,3 Stop: 05/27/18 13:53 Lorazepam (Ativan) 0.5 mg in 1 mls @ 0.5 mls/min IV Q8H PRN PRN Reason: Sedation/Anxiety Stop: 05/27/18 13:53 Promethazine HCl 12.5 mg/ (Sodium Chloride) 50.5 mls @ 204 mls/hr IV Q6H PRN PRN Reason: Nausea &/or Vomiting Stop: 05/27/18 13:53 Insulin Aspart (Novolog Flexpen) 0 units SC ACHS [facility] Stop: 05/27/18 16:29 Last Admin: 05/01/18 08:39 Dose: Not Given Insulin Glargine (Lantus Solostar Pen) 12 units SC BID [facility]; Protocol Stop: 05/30/18 08:59 Last Admin: 05/01/18 08:31 Dose: Not Given Lorazepam (Ativan) 0.5 mg PO Q8H PRN PRN Reason: Sedation/Anxiety Stop: 05/27/18 13:53 Magnesium Hydroxide (Milk Of Magnesia) 30 ml PO DAILY PRN PRN Reason: Constipation Stop: 05/27/18 13:53 Metoclopramide HCl (Reglan) 10 mg IV Q6H PRN PRN Reason: Nausea &/or Vomiting Stop: 05/27/18 13:53 Miscellaneous (Pneumococcal Vacc, Do Not Administer) 1 ea N/A PRN PRN PRN Reason: Notification Stop: 05/27/18 13:53 Miscellaneous (Flu Vaccine, Do Not Administer) 1 ea N/A PRN PRN PRN Reason: Notification Stop: 05/27/18 13:53 Miscellaneous (Carbohydrates For Hypoglycemia) 15 - 30 gm PO UD PRN PRN Reason: Hypoglycemia Treatment Stop: 05/27/18 14:36 Miscellaneous Information (Consult Glycemic Management Pharmacy) 1 ea N/A UD PRN PRN Reason: Consult Stop: 05/27/18 15:19 Multivitamins/Minerals (Multivitamin W/ Minerals) 1 tab PO DAILY [facility] Stop: 05/28/18 08:59 Last Admin: 05/01/18 08:29 Dose: 1 tab Ondansetron HCl (Zofran) 4 mg PO Q6H PRN PRN Reason: Nausea Stop: 05/27/18 13:53 Ondansetron HCl (Zofran) 4 mg IV Q6H PRN PRN Reason: Nausea &/or Vomiting Stop: 05/27/18 13:53 Oxycodone HCl (Roxicodone Immediate Rel) 5 - 10 mg PO Q4H PRN PRN Reason: Moderate-Severe Pain Stop: 05/11/18 13:53 Last Admin: 04/29/18 23:55 Dose: 10 mg Senna/Docusate Sodium (Senokot S) 2 tab PO HS [facility] Stop: 05/27/18 20:59 Last Admin: 04/30/18 21:14 Dose: Not Given Sodium Biphosphate/Sodium Phosphate (Fleet Enema) 132 ml MD ONE PRN PRN Reason: Constipation Stop: 05/27/18 13:53 Tramadol HCl (Ultram) 50 - 100 mg PO Q4H PRN PRN Reason: Moderate-Severe pain Stop: 05/27/18 13:53 Last Admin: 05/01/18 07:40 Dose: 100 mg
== END 2018-05-01 13:12 | disposition home or self-care (01) | DRG 455 ==
LOC: ASU 08:06 → 3E 12:46 → 3W 04-30 14:24